=== PATIENT | female | born 1990 | race Caucasian/White ===

== ENCOUNTER 2017-02-04 07:00 | Inpatient (IN) | payer BC, MEDICAID ==
[2017-02-04] MEDS ORDERED: Misoprostol 50 MCG (1/2 of 100 MCG) Tab ONE (08:02)
[2017-02-04] MEDS ORDERED: Ondansetron 4 MG Tab.DIS PO PRN (08:22)
[2017-02-04] MEDS ORDERED: fentaNYL 100 MCG/2 ML SDV IVPUSH PRN (08:22)
[2017-02-04] MEDS ORDERED: Sodium Chloride 0.9% 10 ML Syringe FLUSH PRN (08:22)
[2017-02-04] MEDS ORDERED: Acetaminophen 325 MG Tab PO PRN (08:22)
[2017-02-04] MEDS ORDERED: Misoprostol 50 MCG (1/2 of 100 MCG) Tab VAG ONE (08:30)
--- NOTE | 2017-02-04 08:39 | PCM.LDHP ---
L&D History of Present Illness - General Date of Service: 02/04/17 (induction for baby at 98Th % at 39 weeks) Admit Problem/Dx: Patient Status Order with Admit Dx/Problem 02/04/17 08:22 Patient Status [ADT] Routine Admission Diagnosis/Problem Admission Diagnosis/Problem Source of Information: Patient History Limitations: Reports: No limitations - History of Present Illness Introduction:: This 26 year old who is 39 2/7 weeks gestation is being induced for baby measuring in the 98th % at 38 5/7 weeks. First baby was over 8 pounds at 39 weeks. Concern for macrosomic baby. Has had adequate care. Failed one hour GTT and passed the three hour GTT has gained over 30 pounds during this . 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 Dermatological Surgical History: Reports: None Social & Family History - Family History Family Medical History: Noncontributory - Tobacco Use Smoking Status *Q: Never Smoker Second Hand Smoke Exposure: No - Caffeine Use Caffeine Use: Reports: Soda Caffeine Use Comment: "Every once in a while." - Alcohol Use Days Per Week of Alcohol Use: 0 - Recreational Drug Use Recreational Drug Use: No H&P Review of Systems - Review of Systems: Review Of Systems: See Below General: Reports: no symptoms HEENT: Reports: no symptoms Pulmonary: Reports: No Symptoms Cardiovascular: Reports: no symptoms Gastrointestinal: Reports: No symptoms Genitourinary: Reports: no symptoms Musculoskeletal: Reports: no symptoms Skin: Reports: no symptoms Psychiatric: Reports: no symptoms Neurological: Reports: No Symptoms Hematologic/Lymphatic: Reports: no symptoms Immunologic: Reports: no symptoms L&D Exam - Exam Exam: See Below - Vital Signs Weight: 272 lb - OB Specific Contraction Intensity: Mild movement: active heart tones: present heart tones per min: 155 Heart Rate (FHR) Variability: Moderate (6-25 bmp) Presentation: Vertex Estimated Weight: 9 pounds - Alvarenga Score Alvarenga Score Cervix Position: Posterior Alvarenga Score Consistency: Soft Alvarenga Score Effacement: 51-70% Alvarenga Score Dilation: 1-2 cm Alvarenga Score 's Station: -1 ,0 Alvarenga Score Total: 7 - Exam General: alert, oriented HEENT: PERRLA, Conjunctiva clear, Mucosa moist & pink, Posterior pharynx clear Neck: supple, trachea midline Lungs: Clear to auscultation, Normal respiratory effort Cardiovascular: regular rate, regular rhythm Abdomen: normal bowel sounds, soft Rectal Exam: Normal exam Genitourinary: Normal external exam, Enlarged uterus Back Exam: normal inspection, full range of motion Extremities: normal inspection Skin: warm, dry, intact Neurological: cranial nerves intact, reflexes equal bilateral Psychiatric: alert, normal affect, normal mood - Patient Data Lab Results last 24 hrs: Laboratory Results - last 24 hr 02/04/17 02/04/17 02/04/17 Range/Units 07:36 07:36 07:41 WBC 13.7 H (4.5-11.0) K/uL RBC 4.29 (3.30-5.50) M/uL Hgb 12.5 (12.0-15.0) g/dL Hct 37.5 (36.0-48.0) % MCV 87 (80-98) fL MCH 29 (27-31) pg MCHC 33 (32-36) % Plt Count 209 (150-400) K/uL Neut % (Auto) 75 H (36-66) % Lymph % (Auto) 14 L (24-44) % [place] % (Auto) 10 H (2-6) % Eos % (Auto) 1 L (2-4) % Baso % (Auto) 0 (0-1) % Urine Color Yellow Urine Appearance Slightly cloudy Urine pH 6.0 (4.5-8.0) Ur Specific [place] 1.025 (1.008-1.030) Urine Protein Negative (NEGATIVE) mg/dL Urine Glucose (UA) Normal (NEGATIVE) mg/dL Urine Ketones Negative (NEGATIVE) mg/dL Urine Occult Blood Negative (NEGATIVE) Urine Nitrite Negative (NEGATIVE) Urine Bilirubin Small (NEGATIVE) Urine Urobilinogen 1 (NORMAL) mg/dL Ur Leukocyte Esterase Moderate (NEGATIVE) Urine RBC 0-5 (0-5) Urine WBC 20-30 H (0-5) Ur Epithelial Cells Many Amorphous Sediment Rare Urine Bacteria Few Urine Mucus Few Urine Opiates Screen Negative (NEGATIVE) Ur Oxycodone Screen Negative (NEGATIVE) Urine Methadone Screen Negative (NEGATIVE) Ur Propoxyphene Screen Negative (NEGATIVE) Ur Barbiturates Screen Negative (NEGATIVE) Ur Tricyclics Screen Negative (NEGATIVE) Ur Phencyclidine Scrn Negative (NEGATIVE) Ur Amphetamine Screen Negative (NEGATIVE) U Methamphetamines Scrn Negative (NEGATIVE) Urine MDMA Screen Negative (NEGATIVE) U Benzodiazepines Scrn Negative (NEGATIVE) U Cocaine Metab Screen Negative (NEGATIVE) U Marijuana (THC) Screen Negative (NEGATIVE) Result Diagrams: 02/04/17 07:41 - Problem List (1) Macrosomia affecting management of mother SNOMED Code(s): 30475731 ICD Code: O36.60X0 - MATERNAL CARE FOR EXCESS GROWTH, UNSP TRIMESTER, UNSP Status: Acute Current Visit: Yes (2) Elective induction of labor planned SNOMED Code(s): 537724576 ICD Code: [id number] - Status: Acute Current Visit: Yes (3) SNOMED Code(s): 91078368 ICD Code: Z33.1 - STATE, INCIDENTAL Status: Acute Current Visit : Yes Qualifiers: Weeks of gestation: 39 weeks Qualified Code(s): Z3A.39 - 39 weeks gestation of Problem List Initiated/Reviewed/Updated: Yes Orders Last 24hrs: Active Orders 24 hr Category Date Time Status Patient Status [ADT] Routine ADT 02/04/17 08:22 Ordered Antiembolic Devices [RC] .Routine Care 02/04/17 08:24 Ordered Communication Order [RC] ASDIRECTED Care 02/04/17 08:22 Ordered Heart Tones [RC] PER UNIT ROUTINE Care 02/04/17 08:22 Ordered May Shower [RC] ASDIRECTED Care 02/04/17 08:22 Ordered Notify Provider Vital Signs [RC] PRN Care 02/04/17 08:22 Ordered Notify Provider [RC] PRN Care 02/04/17 08:22 Ordered Up ad [place] [RC] ASDIRECTED Care 02/04/17 08:22 Ordered VTE/DVT Education [RC] Click to Edit Care 02/04/17 08:24 Ordered Vital Signs [RC] PER UNIT ROUTINE Care 02/04/17 08:22 Ordered Acetaminophen [Tylenol] Med 02/04/17 08:22 Ordered 650 mg PO Q4H PRN Misoprostol [Cytotec] Med 02/04/17 08:30 Ordered 50 mcg VAG ONETIME Ondansetron [Zofran ODT] Med 02/04/17 08:22 Ordered 4 mg PO Q4H PRN Oxytocin/Normal Saline [Pitocin in NS 20 Units/1,000 ML Med 02/04/17 08:30 Ordered ] 1,000 ml IV TITRATE Sodium Chloride 0.9% [Saline Flush] Med 02/04/17 08:22 Ordered 10 ml FLUSH ASDIRECTED PRN fentaNYL [Sublimaze] Med 02/04/17 08:22 Ordered 100 mcg IVPUSH Q1H PRN DVT/VTE Prophylaxis Reflex [OM.PC] Routine Oth 02/04/17 08:22 Ordered Saline Lock Insert [OM.PC] Routine Oth 02/04/17 08:22 Ordered Resuscitation Status Routine Resus Stat 02/04/17 08:22 Ordered Medication Orders Acetaminophen (Tylenol) 650 mg PO Q4H PRN PRN Reason: Pain (Mild 1-3) and fever Fentanyl (Sublimaze) 100 mcg IVPUSH Q1H PRN PRN Reason: Pain (moderate 4-6) Oxytocin/Sodium Chloride (Pitocin In Ns 20 Units/1,000 Ml) 1,000 mls @ 6 mls/ hr IV TITRATE ALCIRA; 2 MUNITS/MIN PRN Reason: Protocol Misoprostol (Cytotec) 50 mcg VAG ONETIME ALCIRA Ondansetron HCl (Zofran Odt) 4 mg PO Q4H PRN PRN Reason: Nausea/Vomiting Sodium Chloride (Saline Flush) 10 ml FLUSH ASDIRECTED PRN PRN Reason: Keep Vein Open Assessment/Plan Comment:: 26 year old 39 2/7 with baby greater than 98th % for growth for age. Induction today Treat GBS positive status Misoprostol 50 mcg this morning and reassess at noon. plan for a vaginal delivery later today pain management per patient request.
[2017-02-04] MEDS ORDERED: Penicillin G Potassium 5 MILLUNITS in Sodium Chloride 0.9% 100 ML IV ONE (10:00)
[2017-02-04] MEDS ORDERED: Sodium Chloride 0.9% 250 ML IV ONE (12:30)
--- NOTE | 2017-02-04 12:57 | PCM.PNLD ---
Labor Progress Note - VS & Meds Vital Signs: Last Vital Signs Temp 97.8 F 02/04/17 11:09 Pulse 79 02/04/17 11:09 Resp 18 02/04/17 11:09 BP 120/64 02/04/17 11:09 Pulse Ox 94 L 02/04/17 11:09 Active Medications: Current Medications Acetaminophen (Tylenol) 650 mg PO Q4H PRN PRN Reason: Pain (Mild 1-3) and fever Fentanyl (Sublimaze) 100 mcg IVPUSH Q1H PRN PRN Reason: Pain (moderate 4-6) Oxytocin/Sodium Chloride (Pitocin In Ns 20 Units/1,000 Ml) 20 unit in 1,000 mls @ 6 mls/hr IV TITRATE ALCIRA; 2 MUNITS/MIN PRN Reason: Protocol Penicillin G Potassium 2.5 (millunits/ Sodium Chloride) 50 mls @ 100 mls/hr IV Q4H ALCIRA Ondansetron HCl (Zofran Odt) 4 mg PO Q4H PRN PRN Reason: Nausea/Vomiting Sodium Chloride (Saline Flush) 10 ml FLUSH ASDIRECTED PRN PRN Reason: Keep Vein Open Discontinued Medications Penicillin G Potassium 5 (millunits/ Sodium Chloride) 100 mls @ 100 mls/hr IV ONETIME ONE Stop: 02/04/17 10:59 Last Admin: 02/04/17 10:11 Dose: 100 mls/hr Misoprostol (Cytotec) Confirm Administered Dose 50 mcg .ROUTE .STK-MED ONE Stop: 02/04/17 08:03 Last Admin: 02/04/17 08:52 Dose: Not Given Misoprostol (Cytotec) 50 mcg VAG ONETIME ONE Stop: 02/04/17 08:31 Last Admin: 02/04/17 08:03 Dose: 50 mcg - Uterine Contractions Uterine Monitoring Mode: External [place] Contraction Frequency (min): 0 Contraction Duration (sec): 0 Contraction Intensity: Mild to Moderate Uterine Resting Tone: Soft - Monitoring Monitor Mode: Doppler/Auscultation Heart Rate (FHR) Baseline: 155 Heart Rate (FHR) Variability: Moderate (6-25 bmp) Accelerations: Present, 15x15 Decelerations: None Strip Review: Category I - Vaginal Exam Dilation (cm): 2-3 Effacement (Percent): 80 Station: 0 Cervical Position: Posterior Sterile Vaginal Exam Performed By: Nohemy Nunez Vaginal Exam Comment: Nice progression, bloody show - Labor Progress (Free Text) Labor Progress: In the past half hour contractions have become more intense. Cervical change since this morning. Doing well Plan for vaginal delivery Pain medication per patient requested. Offered tub as first choice.
[2017-02-04] MEDS ORDERED: Penicillin G Potassium 2.5 MILLUNITS in Sodium Chloride 0.9% 50 ML IV SCH (14:00)
[2017-02-04] MEDS ORDERED: Lidocaine 1% 50 ML MDV ONE ×2 (15:03→19:55)
[2017-02-04] MEDS ORDERED: Ropivacaine 100 ML ONE (15:05)
[2017-02-04] MEDS ORDERED: Lidocaine 1% 50 ML MDV INJECT ONE (15:10)
[2017-02-04] MEDS ORDERED: Acetaminophen/oxyCODONE 325-5 MG Tab PO PRN (15:35)
[2017-02-04] MEDS ORDERED: Lanolin 100% Cream 40 GM Tube TOP PRN (15:35)
[2017-02-04] MEDS ORDERED: Benzocaine 20% Top Spray 56 GM Bottle TOP PRN (15:35)
[2017-02-04] MEDS ORDERED: Witch Hazel Medicated Pads 100/Jar TOP PRN (15:35)
--- NOTE | 2017-02-04 15:55 | PCM.DEL ---
L & D Note - General Info Date of Service: 02/04/17 (delivery) Mother's Due Date: 02/09/17 - Delivery Note Labor: spontaneous Cervical Ripening Method: Misoprostil Delivery Outcome: Livebirth Infant Delivery Method: Spontaneous Vaginal Delivery Delivery Mode: Spontaneous Presentation: Vertex Nuchal cord: present Anesthesia Type: Epidural (although baby was deliveriec without pain relief as epidural was just given and kickec in about the time I repaired her tear.) Amniotic Fluid Description: Clear Episiotomy Type: None Laceration: 1st degree, perineal, vaginal Suture type: vicryl Suture size: 3-0 Placenta: intact, spontaneous Cord: 3 vessels Estimated blood loss: 300 Resuscitation needed: No : bulb syringe, stimulated, warmed, blanket used, warmer used Provider: Nohemy Nunez Score 1 min: 9 Score 5 min: 9 Score 10 min: 9 Second Stage Interventions: Reports: Pushing Involuntarily Delivery Comments (Free Text/Narrative):: This 26 year old G2 now P2 who is 39 2/7 weeks delivered via a viable female infant at 1459 in LIT position. Mother progressed rapidly from 5 to complete. As she was lied down after the epidural she was complete with a bulging bag. I ruptured the bag and the head delivered spontaneously. Nuchal was reduced and delivered with left hand at face. The baby was placed on Mother's abdomen where she was dried and stimulated. The cord was clamped and cut and baby to warmer as she wasn't crying yet. She cried spontaneously as she was placed on the warmer. Apgars of 8,9,9. Three vessel cord. Weight 8-15 pounds. Baby transitioned well and started pinking up and crying while on the warmer. The placenta was expressed spontaneously intact. Active management of the third stage was sued. There was a 1 st degree tear of the vagina and perineum which was repaired with 3-0 vicryl. No lacerations of the cervix, or rectum were found. EBL 300cc Mother and baby to post and nursery in stable condition. Induction Criteria - Alvarenga Score Alvarenga Score Dilation: 1-2 cm Alvarenga Score Effacement: 40-50% Alvarenga Score 's Station: -1 ,0 Alvarenga Score Consistency: Medium Alvarenga Score Cervix Position: Posterior Alvarenga Score Total: 5 Alvarenga Score Presenting Part: Reports: Cephalic - Induction Gestational Age >/= 39 wks: Yes Estimated pelvis: Reports: Adequate Reassuring monitoring strip: Yes Absence of tachy systole: Yes - General Info Date of Service: 02/04/17 Admission Dx/Problem (Free Text): Patient Status Order with Admit Dx/Problem 02/04/17 08:22 Patient Status [ADT] Routine Admission Diagnosis/Problem Admission Diagnosis/Problem Functional Status: Reports: pain controlled - Review of Systems General: Reports: No Symptoms HEENT: Reports: no symptoms Pulmonary: Reports: no symptoms Cardiovascular: Reports: No Symptoms Gastrointestinal: Reports: No symptoms Genitourinary: Reports: no symptoms Musculoskeletal: Reports: no symptoms Skin: Reports: no symptoms Neurological: Reports: No Symptoms Psychiatric: Reports: no symptoms - Patient Data Vitals - most recent: Last Vital Signs Temp 97.8 F 02/04/17 11:09 Pulse 79 02/04/17 11:09 Resp 18 02/04/17 11:09 BP 120/64 02/04/17 11:09 Pulse Ox 94 L 02/04/17 11:09 Weight - most recent: 272 lb I&O - last 24 hours: Intake & Output 02/04/17 02/04/17 02/04/17 06:59 14:59 22:59 Intake Total 100 Balance 100 Lab Results last 24 hrs: Laboratory Results - last 24 hr 02/04/17 02/04/17 02/04/17 Range/Units 07:36 07:36 07:41 WBC 13.7 H (4.5-11.0) K/uL RBC 4.29 (3.30-5.50) M/uL Hgb 12.5 (12.0-15.0) g/dL Hct 37.5 (36.0-48.0) % MCV 87 (80-98) fL MCH 29 (27-31) pg MCHC 33 (32-36) % Plt Count 209 (150-400) K/uL Neut % (Auto) 75 H (36-66) % Lymph % (Auto) 14 L (24-44) % [place] % (Auto) 10 H (2-6) % Eos % (Auto) 1 L (2-4) % Baso % (Auto) 0 (0-1) % Urine Color Yellow Urine Appearance Slightly cloudy Urine pH 6.0 (4.5-8.0) Ur Specific [place] 1.025 (1.008-1.030) Urine Protein Negative (NEGATIVE) mg/dL Urine Glucose (UA) Normal (NEGATIVE) mg/dL Urine Ketones Negative (NEGATIVE) mg/dL Urine Occult Blood Negative (NEGATIVE) Urine Nitrite Negative (NEGATIVE) Urine Bilirubin Small (NEGATIVE) Urine Urobilinogen 1 (NORMAL) mg/dL Ur Leukocyte Esterase Moderate (NEGATIVE) Urine RBC 0-5 (0-5) Urine WBC 20-30 H (0-5) Ur Epithelial Cells Many Amorphous Sediment Rare Urine Bacteria Few Urine Mucus Few Urine Opiates Screen Negative (NEGATIVE) Ur Oxycodone Screen Negative (NEGATIVE) Urine Methadone Screen Negative (NEGATIVE) Ur Propoxyphene Screen Negative (NEGATIVE) Ur Barbiturates Screen Negative (NEGATIVE) Ur Tricyclics Screen Negative (NEGATIVE) Ur Phencyclidine Scrn Negative (NEGATIVE) Ur Amphetamine Screen Negative (NEGATIVE) U Methamphetamines Scrn Negative (NEGATIVE) Urine MDMA Screen Negative (NEGATIVE) U Benzodiazepines Scrn Negative (NEGATIVE) U Cocaine Metab Screen Negative (NEGATIVE) U Marijuana (THC) Screen Negative (NEGATIVE) Med Orders - Current: Current Medications Acetaminophen (Tylenol) 650 mg PO Q4H PRN PRN Reason: Pain (Mild 1-3) and fever Fentanyl (Sublimaze) 100 mcg IVPUSH Q1H PRN PRN Reason: Pain (moderate 4-6) Oxytocin/Sodium Chloride (Pitocin In Ns 20 Units/1,000 Ml) 20 unit in 1,000 mls @ 6 mls/hr IV TITRATE ALCIRA; 2 MUNITS/MIN PRN Reason: Protocol Penicillin G Potassium 2.5 (millunits/ Sodium Chloride) 50 mls @ 100 mls/hr IV Q4H ALCIRA Last Admin: 02/04/17 14:55 Dose: 100 mls/hr Ondansetron HCl (Zofran Odt) 4 mg PO Q4H PRN PRN Reason: Nausea/Vomiting Sodium Chloride (Saline Flush) 10 ml FLUSH ASDIRECTED PRN PRN Reason: Keep Vein Open Discontinued Medications Penicillin G Potassium 5 (millunits/ Sodium Chloride) 100 mls @ 100 mls/hr IV ONETIME ONE Stop: 02/04/17 10:59 Last Admin: 02/04/17 10:11 Dose: 100 mls/hr Sodium Chloride (Normal Saline) 250 mls @ 500 mls/hr IV ONETIME ONE Stop: 02/04/17 12:59 Oxytocin/Sodium Chloride (Pitocin In Ns 20 Units/1,000 Ml) Confirm Administered Dose 20 unit in 1,000 mls @ as directed .ROUTE .STK-MED ONE Stop: 02/04/17 15:00 Ropivacaine (Naropin 0.2%) Confirm Administered Dose 100 mls @ as directed .ROUTE .STK-MED ONE Stop: 02/04/17 15:06 Lidocaine HCl (Xylocaine 1%) Confirm Administered Dose 100 ml .ROUTE .STK-MED ONE Stop: 02/04/17 15:04 Misoprostol (Cytotec) Confirm Administered Dose 50 mcg .ROUTE .STK-MED ONE Stop: 02/04/17 08:03 Last Admin: 02/04/17 08:52 Dose: Not Given Misoprostol (Cytotec) 50 mcg VAG ONETIME ONE Stop: 02/04/17 08:31 Last Admin: 02/04/17 08:03 Dose: 50 mcg - Exam General: alert, oriented HEENT: Pupils equal, Pupils reactive, EOMI, Mucous membr. moist/pink Neck: supple Lungs: Clear to auscultation, Normal respiratory effort Cardiovascular: Regular Rate, Regular Rhythm Abdomen: bowel sounds present, soft, no tenderness, no distension (Female) Exam: Normal external exam, Normal speculum exam, Normal bimanual exam, Enlarged uterus, Vaginal bleeding Back Exam: normal inspection, full range of motion Extremities: no edema Skin: warm, dry, intact Neurological: no new focal deficit Psy/Mental Status: alert, normal affect, normal mood - Problem List & Annotations (1) Macrosomia affecting management of mother SNOMED Code(s): 46746883 Code(s): O36.60X0 - MATERNAL CARE FOR EXCESS GROWTH, UNSP TRIMESTER, UNSP Status: Acute Current Visit: Yes (2) Elective induction of labor planned SNOMED Code(s): 774339527 Code(s): FVL3527 - Status: Acute Current Visit: Yes (3) SNOMED Code(s): 82318608 Code(s): Z33.1 - STATE, INCIDENTAL Status: Acute Current Visit: Yes Qualifiers: Weeks of gestation: 39 weeks Qualified Code(s): Z3A.39 - 39 weeks gestation of (4) Vaginal tear resulting from childbirth SNOMED Code(s): 703520091 Code(s): O71.4 - OBSTETRIC HIGH VAGINAL LACERATION ALONE Status: Acute Current Visit: Yes (5) Labor and delivery complicated by cord around neck without compression SNOMED Code(s): 173385217, 833823079 Code(s): O69.81X0 - LABOR AND DEL COMP BY CORD AROUND NECK, W/O COMPRSN, UNSP Status: Acute Current Visit: Yes Qualifiers: Fetus number: single or unspecified fetus Qualified Code(s): O69.81X0 - Labor and delivery complicated by cord around neck, without compression, not applicable or unspecified (6) GBS (group B Streptococcus carrier), +RV culture, currently SNOMED Code(s): 65016318, 760736607 Code(s): O99.820 - STREPTOCOCCUS B CARRIER STATE COMPLICATING Status: Acute Current Visit: Yes - Problem List Review Problem List Initiated/Reviewed/Updated: Yes - My Orders Last 24 Hours: My Active Orders 02/04/17 08:22 Communication Order [RC] ASDIRECTED May Shower [RC] ASDIRECTED Notify Provider Vital Signs [RC] PRN Notify Provider [RC] PRN Up ad [place] [RC] ASDIRECTED Vital Signs [RC] PER UNIT ROUTINE Acetaminophen [Tylenol] 650 mg PO Q4H PRN Ondansetron [Zofran ODT] 4 mg PO Q4H PRN Sodium Chloride 0.9% [Saline Flush] 10 ml FLUSH ASDIRECTED PRN fentaNYL [Sublimaze] 100 mcg IVPUSH Q1H PRN DVT/VTE Prophylaxis Reflex [OM.PC] Routine Saline Lock Insert [OM.PC] Routine 02/04/17 08:24 VTE/DVT Education [RC] Click to Edit 02/04/17 08:30 Oxytocin/Normal Saline [Pitocin in NS 20 Units/1,000 ML] 20 unit in 1,000 ml IV TITRATE 02/04/17 14:00 Penicillin G Potassium [Pfizerpen] 2.5 millunits Sodium Chloride 0.9% [Normal Saline] 50 ml IV Q4H 02/04/17 15:35 Acetaminophen/oxyCODONE [Percocet 325-5 MG] 1 tab PO Q4H PRN Benzocaine [Rwci-C-Jyjazfp 20% [place]] See Dose Instructions TOP Q4H PRN Docusate Sodium [Colace] 100 mg PO BID PRN Ibuprofen [Motrin] 600 mg PO Q6H PRN Lanolin [Lansinoh HPA] 1 gm TOP ASDIRECTED PRN Witch Nicole [Tucks] 1 pad TOP ASDIRECTED PRN Assess Lochia [WOMSER] Per Unit Routine Assess Uterine Involution [WOMSER] Per Unit Routine Resuscitation Status Routine 02/04/17 15:36 Patient Status [ADT] Routine Vital Signs [RC] PFP 02/04/17 15:37 Ice Therapy [OM.PC] Per Unit Routine Perineal Care [OM.PC] Per Unit Routine Peripheral IV Discontinue [OM.PC] Routine Sitz Bath [OM.PC] Per Unit Routine 02/04/17 Dinner Regular Diet [DIET] 02/05/17 05:11 CBC WITH AUTO DIFF [HEME] AM - Assessment Assessment:: 26 year old G2 Now P2 without complications Nuchal cord easily reduced Laceration repaired GBS treated large for gestational age bottle feeding - Plan Plan:: 26 year old 39 12/03 with baby greater than 98th % for growth for age. Induction today Treat GBS positive status Misoprostol 50 mcg this morning and reassess at noon. plan for a vaginal delivery later today pain management per patient request. 02/04/17 Routine care of mother sitz bath as requested 48 hour stay due to GBS positive status
[2017-02-04] MEDS: Ibuprofen 600 MG Tab PO PRN (20:46)
--- NOTE | 2017-02-05 00:02 | ANES ---
DATE OF SERVICE: 02/04/2017 INDICATIONS: Makenna is a 26-year-old female, patient of Mely Nunez in our OB unit. I was requested to see her for prolonged stage II labor, #[id number]. Upon arrival, I found a 26-year-old healthy female. I reviewed her history chart and lab work, and found no contraindication to labor epidural. She was aware of risks and benefits of the procedure, which are reviewed a 2nd time. She was okay to proceed and consent was received. DESCRIPTION OF PROCEDURE: I had her seated at the edge of the bed. Betadine prep x3 to lumbar region. Sterile drape was placed. 1% lidocaine skin wheal as well as deep at the L3- L4 region, 17-gauge Tuohy was placed to loss of resistance. Negative CSF, negative heme, negative paresthesia. I inserted a catheter to 12 cm, removed the needle, placed test dose 3 mL of 1.5% lidocaine with 1:200,000 epinephrine. Negative sequelae. Catheter was secured. The patient was placed in the supine position. I dosed her with 12 mL of 0.2% ropivacaine, and began an infusion of 12 mL an hour of the same 0.2% ropivacaine. She tolerated the procedure quite well. After placing her in the supine position, she felt that she needed to push. I reported off to the nurse and Mely Nunez. Please refer to nurse's notes for vital signs and neuro status, which were changed and after completion, there were no questions. Rob Da Silva CRNA /[id number]
[2017-02-05] MEDS: Ibuprofen 600 MG Tab PO PRN ×2 (06:00→21:48)
--- NOTE | 2017-02-05 08:28 | PCM.PNPP ---
- General Info Date of Service: 02/05/17 (PPD 1) Admission Dx/Problem (Free Text): Patient Status Order with Admit Dx/Problem 02/04/17 08:22 Patient Status [ADT] Routine Admission Diagnosis/Problem Admission Diagnosis/Problem Functional Status: Reports: pain controlled - Review of Systems General: Reports: No Symptoms HEENT: Reports: no symptoms Pulmonary: Reports: no symptoms Cardiovascular: Reports: No Symptoms Gastrointestinal: Reports: No symptoms Genitourinary: Reports: no symptoms Musculoskeletal: Reports: no symptoms Skin: Reports: no symptoms Neurological: Reports: No Symptoms Psychiatric: Reports: no symptoms - General Info Date of Service: 02/05/17 - Patient Data Vital Signs - most recent: Last Vital Signs Temp 97.6 F 02/05/17 07:38 Pulse 88 02/05/17 07:38 Resp 18 02/05/17 07:38 BP 130/92 H 02/05/17 07:38 Pulse Ox 97 02/04/17 19:48 Weight - most recent: 272 lb I&O - last 24 hours: Intake & Output 02/04/17 02/05/17 02/05/17 22:59 06:59 14:59 Intake Total 1200 Balance 1200 Lab Results - last 24 hrs: Laboratory Results - last 24 hr 02/05/17 Range/Units 05:11 WBC 17.6 H (4.5-11.0) K/uL RBC 4.20 (3.30-5.50) M/uL Hgb 12.2 (12.0-15.0) g/dL Hct 37.0 (36.0-48.0) % MCV 88 (80-98) fL MCH 29 (27-31) pg MCHC 33 (32-36) % Plt Count 211 (150-400) K/uL Neut % (Auto) 76 H (36-66) % Lymph % (Auto) 15 L (24-44) % [place] % (Auto) 9 H (2-6) % Eos % (Auto) 1 L (2-4) % Baso % (Auto) 0 (0-1) % Med Orders - Current: Current Medications Acetaminophen (Tylenol) 650 mg PO Q4H PRN PRN Reason: Pain (Mild 1-3) and fever Benzocaine (Pelc-H-Gsnafki 20% [place]) 0 gm TOP Q4H PRN PRN Reason: Perineal Comfort Measure Docusate Sodium (Colace) 100 mg PO BID PRN PRN Reason: Constipation Emollient Ointment (Lansinoh Hpa) 1 gm TOP ASDIRECTED PRN PRN Reason: Sore Nipples Fentanyl (Sublimaze) 100 mcg IVPUSH Q1H PRN PRN Reason: Pain (moderate 4-6) Oxytocin/Sodium Chloride (Pitocin In Ns 20 Units/1,000 Ml) 20 unit in 1,000 mls @ 6 mls/hr IV TITRATE ALCIRA; 2 MUNITS/MIN PRN Reason: Protocol Last Titration: 02/04/17 15:30 Dose: 125 mls/hr Ibuprofen (Motrin) 600 mg PO Q6H PRN PRN Reason: mild pain or fever Last Admin: 02/05/17 06:00 Dose: 600 mg Ondansetron HCl (Zofran Odt) 4 mg PO Q4H PRN PRN Reason: Nausea/Vomiting Oxycodone/Acetaminophen (Percocet 325-5 Mg) 1 tab PO Q4H PRN PRN Reason: Pain (moderate 4-6) Sodium Chloride (Saline Flush) 10 ml FLUSH ASDIRECTED PRN PRN Reason: Keep Vein Open Witmoraima Rivera (Tucks) 1 pad TOP ASDIRECTED PRN PRN Reason: Hemorrhoids Discontinued Medications Penicillin G Potassium 5 (millunits/ Sodium Chloride) 100 mls @ 100 mls/hr IV ONETIME ONE Stop: 02/04/17 10:59 Last Admin: 02/04/17 10:11 Dose: 100 mls/hr Penicillin G Potassium 2.5 (millunits/ Sodium Chloride) 50 mls @ 100 mls/hr IV Q4H ALCIRA Last Admin: 02/04/17 14:55 Dose: 100 mls/hr Sodium Chloride (Normal Saline) 250 mls @ 500 mls/hr IV ONETIME ONE Stop: 02/04/17 12:59 Last Admin: 02/04/17 12:30 Dose: 500 mls/hr Oxytocin/Sodium Chloride (Pitocin In Ns 20 Units/1,000 Ml) Confirm Administered Dose 20 unit in 1,000 mls @ as directed .ROUTE .STK-MED ONE Stop: 02/04/17 15:00 Last Admin: 02/04/17 19:49 Dose: Not Given Ropivacaine (Naropin 0.2%) Confirm Administered Dose 100 mls @ as directed .ROUTE .STK-MED ONE Stop: 02/04/17 15:06 Lidocaine HCl (Xylocaine 1%) Confirm Administered Dose 100 ml .ROUTE .STK-MED ONE Stop: 02/04/17 15:04 Last Admin: 02/04/17 19:56 Dose: Not Given Lidocaine HCl (Xylocaine 1%) 50 ml INJECT ONETIME ONE Stop: 02/04/17 15:11 Last Admin: 02/04/17 15:10 Dose: 50 ml Lidocaine HCl (Xylocaine 1%) Confirm Administered Dose 50 ml .ROUTE .STK-MED ONE Stop: 02/04/17 19:56 Last Admin: 02/04/17 20:45 Dose: Not Given Misoprostol (Cytotec) Confirm Administered Dose 50 mcg .ROUTE .STK-MED ONE Stop: 02/04/17 08:03 Last Admin: 02/04/17 08:52 Dose: Not Given Misoprostol (Cytotec) 50 mcg VAG ONETIME ONE Stop: 02/04/17 08:31 Last Admin: 02/04/17 08:03 Dose: 50 mcg - Infant Interaction Infant Disposition, : in Room with Family Infant Interaction: Holding Infant Infant Feeding: Bottle Fed Infant Support Person: - Recovery Exam Fundal Tone: Firms with Massage Fundal Level: At Umbilicus Fundal Placement: Midline Lochia Amount: Small Lochia Color: Rubra/Red Perineum Description: Intact, Minimal Bruising/Swelling Episiotomy/Laceration: Approximated Bladder Status: Voiding Urinary Elimination: Voided Other Urinary Elimination, : Voided just prior to delivery. - Exam General: alert, oriented HEENT: Pupils equal Neck: supple Lungs: Clear to auscultation, Normal respiratory effort Cardiovascular: Regular Rate, Regular Rhythm Abdomen: bowel sounds present, soft, no tenderness, no distension Extremities: no edema Skin: warm, dry, intact Wound/Incisions: healing well Neurological: no new focal deficit Psy/Mental Status: alert, normal affect, normal mood - Problem List & Annotations (1) Macrosomia affecting management of mother SNOMED Code(s): 67012324 Code(s): O36.60X0 - MATERNAL CARE FOR EXCESS GROWTH, UNSP TRIMESTER, UNSP Status: Acute Current Visit: Yes (2) Elective induction of labor planned SNOMED Code(s): 663198629 Code(s): KEP7687 - Status: Acute Current Visit: Yes (3) SNOMED Code(s): 07371144 Code(s): Z33.1 - STATE, INCIDENTAL Status: Resolved Current Visit: No Qualifiers: Weeks of gestation: 39 weeks Qualified Code(s): Z3A.39 - 39 weeks gestation of (4) Vaginal tear resulting from childbirth SNOMED Code(s): 534134931 Code(s): O71.4 - OBSTETRIC HIGH VAGINAL LACERATION ALONE Status: Acute Current Visit: Yes (5) Labor and delivery complicated by cord around neck without compression SNOMED Code(s): 845526532, 695126497 Code(s): O69.81X0 - LABOR AND DEL COMP BY CORD AROUND NECK, W/O COMPRSN, UNSP Status: Acute Current Visit: Yes Qualifiers: Fetus number: single or unspecified fetus Qualified Code(s): O69.81X0 - Labor and delivery complicated by cord around neck, without compression, not applicable or unspecified (6) GBS (group B Streptococcus carrier), +RV culture, currently SNOMED Code(s): 74335873, 944655726 Code(s): O99.820 - STREPTOCOCCUS B CARRIER STATE COMPLICATING Status: Acute Current Visit: Yes - Problem List Review Problem List Initiated/Reviewed/Updated: Yes - My Orders Last 24 Hours: My Active Orders 02/04/17 08:22 May Shower [RC] ASDIRECTED Notify Provider Vital Signs [RC] PRN Up ad [place] [RC] ASDIRECTED Vital Signs [RC] Q8H Acetaminophen [Tylenol] 650 mg PO Q4H PRN Ondansetron [Zofran ODT] 4 mg PO Q4H PRN Sodium Chloride 0.9% [Saline Flush] 10 ml FLUSH ASDIRECTED PRN fentaNYL [Sublimaze] 100 mcg IVPUSH Q1H PRN DVT/VTE Prophylaxis Reflex [OM.PC] Routine Saline Lock Insert [OM.PC] Routine 02/04/17 08:24 VTE/DVT Education [RC] Click to Edit 02/04/17 08:30 Oxytocin/Normal Saline [Pitocin in NS 20 Units/1,000 ML] 20 unit in 1,000 ml IV TITRATE 02/04/17 15:35 Acetaminophen/oxyCODONE [Percocet 325-5 MG] 1 tab PO Q4H PRN Benzocaine [Eyta-J-Kkihvcv 20% [place]] See Dose Instructions TOP Q4H PRN Docusate Sodium [Colace] 100 mg PO BID PRN Ibuprofen [Motrin] 600 mg PO Q6H PRN Lanolin [Lansinoh HPA] 1 gm TOP ASDIRECTED PRN Witch Nicole [Tucks] 1 pad TOP ASDIRECTED PRN Assess Lochia [WOMSER] Per Unit Routine Assess Uterine Involution [WOMSER] Per Unit Routine Resuscitation Status Routine 02/04/17 15:36 Patient Status [ADT] Routine 02/04/17 15:37 Ice Therapy [OM.PC] Per Unit Routine Perineal Care [OM.PC] Per Unit Routine Peripheral IV Discontinue [OM.PC] Routine Sitz Bath [OM.PC] Per Unit Routine 02/04/17 Dinner Regular Diet [DIET] - Assessment Assessment:: 26 year old G2 Now P2 without complications Nuchal cord easily reduced Laceration repaired GBS treated large for gestational age bottle feeding 02/05/17 26 year old with 1 st degree repair doing well bottle baby GBS pos, treated HGB 12.2 - Plan Plan:: 26 year old 39 2 with baby greater than 98th % for growth for age. Induction today Treat GBS positive status Misoprostol 50 mcg this morning and reassess at noon. plan for a vaginal delivery later today pain management per patient request. 02/04/17 Routine care of mother sitz bath as requested 48 hour stay due to GBS positive status 02/05/17 Home tomorrow See me in 6 weeks up and about today
[2017-02-05] MEDS: Docusate Sodium 100 MG Cap PO PRN (21:48)
[2017-02-06 07:15] VITALS: BP 125/88
[2017-02-06] MEDS: Docusate Sodium 100 MG Cap PO PRN (07:31)
[2017-02-06] MEDS: Ibuprofen 600 MG Tab PO PRN ×2 (07:31→14:39)
--- NOTE | 2017-02-06 07:34 | PCM.PNPP ---
- General Info Date of Service: 02/06/17 Admission Dx/Problem (Free Text): Patient Status Order with Admit Dx/Problem 02/04/17 08:22 Patient Status [ADT] Routine Admission Diagnosis/Problem Admission Diagnosis/Problem Functional Status: Reports: pain controlled - Review of Systems General: Reports: No Symptoms HEENT: Reports: no symptoms Pulmonary: Reports: no symptoms Cardiovascular: Reports: No Symptoms Gastrointestinal: Reports: No symptoms Genitourinary: Reports: no symptoms Musculoskeletal: Reports: no symptoms Skin: Reports: no symptoms Neurological: Reports: No Symptoms Psychiatric: Reports: no symptoms - General Info Date of Service: 02/06/17 - Patient Data Vital Signs - most recent: Last Vital Signs Temp 36.7 C 02/06/17 07:14 Pulse 86 02/06/17 07:14 Resp 18 02/06/17 07:14 BP 125/88 02/06/17 07:14 Pulse Ox 96 02/06/17 07:14 Weight - most recent: 123.377 kg I&O - last 24 hours: Intake & Output 02/05/17 02/06/17 02/06/17 22:59 06:59 14:59 Intake Total 600 Balance 600 Med Orders - Current: Current Medications Acetaminophen (Tylenol) 650 mg PO Q4H PRN PRN Reason: Pain (Mild 1-3) and fever Benzocaine (Ezyb-H-Jqpzgxd 20% [place]) 0 gm TOP Q4H PRN PRN Reason: Perineal Comfort Measure Docusate Sodium (Colace) 100 mg PO BID PRN PRN Reason: Constipation Last Admin: 02/05/17 21:48 Dose: 100 mg Emollient Ointment (Lansinoh Hpa) 1 gm TOP ASDIRECTED PRN PRN Reason: Sore Nipples Fentanyl (Sublimaze) 100 mcg IVPUSH Q1H PRN PRN Reason: Pain (moderate 4-6) Oxytocin/Sodium Chloride (Pitocin In Ns 20 Units/1,000 Ml) 20 unit in 1,000 mls @ 6 mls/hr IV TITRATE ALCIRA; 2 MUNITS/MIN PRN Reason: Protocol Last Titration: 02/04/17 15:30 Dose: 125 mls/hr Ibuprofen (Motrin) 600 mg PO Q6H PRN PRN Reason: mild pain or fever Last Admin: 02/05/17 21:48 Dose: 600 mg Ondansetron HCl (Zofran Odt) 4 mg PO Q4H PRN PRN Reason: Nausea/Vomiting Oxycodone/Acetaminophen (Percocet 325-5 Mg) 1 tab PO Q4H PRN PRN Reason: Pain (moderate 4-6) Sodium Chloride (Saline Flush) 10 ml FLUSH ASDIRECTED PRN PRN Reason: Keep Vein Open Witch Nicole (Tucks) 1 pad TOP ASDIRECTED PRN PRN Reason: Hemorrhoids Discontinued Medications Penicillin G Potassium 5 (millunits/ Sodium Chloride) 100 mls @ 100 mls/hr IV ONETIME ONE Stop: 02/04/17 10:59 Last Admin: 02/04/17 10:11 Dose: 100 mls/hr Penicillin G Potassium 2.5 (millunits/ Sodium Chloride) 50 mls @ 100 mls/hr IV Q4H ALCIRA Last Admin: 02/04/17 14:55 Dose: 100 mls/hr Sodium Chloride (Normal Saline) 250 mls @ 500 mls/hr IV ONETIME ONE Stop: 02/04/17 12:59 Last Admin: 02/04/17 12:30 Dose: 500 mls/hr Oxytocin/Sodium Chloride (Pitocin In Ns 20 Units/1,000 Ml) Confirm Administered Dose 20 unit in 1,000 mls @ as directed .ROUTE .STK-MED ONE Stop: 02/04/17 15:00 Last Admin: 02/04/17 19:49 Dose: Not Given Ropivacaine (Naropin 0.2%) Confirm Administered Dose 100 mls @ as directed .ROUTE .STK-MED ONE Stop: 02/04/17 15:06 Lidocaine HCl (Xylocaine 1%) Confirm Administered Dose 100 ml .ROUTE .STK-MED ONE Stop: 02/04/17 15:04 Last Admin: 02/04/17 19:56 Dose: Not Given Lidocaine HCl (Xylocaine 1%) 50 ml INJECT ONETIME ONE Stop: 02/04/17 15:11 Last Admin: 02/04/17 15:10 Dose: 50 ml Lidocaine HCl (Xylocaine 1%) Confirm Administered Dose 50 ml .ROUTE .STK-MED ONE Stop: 02/04/17 19:56 Last Admin: 02/04/17 20:45 Dose: Not Given Misoprostol (Cytotec) Confirm Administered Dose 50 mcg .ROUTE .STK-MED ONE Stop: 02/04/17 08:03 Last Admin: 02/04/17 08:52 Dose: Not Given Misoprostol (Cytotec) 50 mcg VAG ONETIME ONE Stop: 02/04/17 08:31 Last Admin: 02/04/17 08:03 Dose: 50 mcg - Interaction Disposition, : [place] in Room with Family Interaction: Holding Feeding: Bottle Fed Infant Support Person: - Recovery Exam Fundal Tone: Firm Fundal Level: 1 Fingerbreadths Above Umbilicus Fundal Placement: Right Lochia Amount: Moderate Lochia Color: Rubra/Red Perineum Description: Intact, Minimal Bruising/Swelling Episiotomy/Laceration: Approximated Bladder Status: Voiding Urinary Elimination: Voided Other Urinary Elimination, : Voided just prior to delivery. - Exam General: alert, oriented HEENT: Pupils equal Neck: supple Lungs: Clear to auscultation, Normal respiratory effort Cardiovascular: Regular Rate, Regular Rhythm Abdomen: bowel sounds present, soft, no tenderness, no distension Extremities: no edema Skin: warm, dry, intact Wound/Incisions: healing well Neurological: no new focal deficit Psy/Mental Status: alert, normal affect, normal mood - Problem List & Annotations (1) GBS (group B Streptococcus carrier), +RV culture, currently SNOMED Code(s): 04269203, 345230651 Code(s): O99.820 - STREPTOCOCCUS B CARRIER STATE COMPLICATING Status: Acute Current Visit: Yes (2) Labor and delivery complicated by cord around neck without compression SNOMED Code(s): 628569665, 698105834 Code(s): O69.81X0 - LABOR AND DEL COMP BY CORD AROUND NECK, W/O COMPRSN, UNSP Status: Acute Current Visit: Yes Qualifiers: Fetus number: single or unspecified fetus Qualified Code(s): O69.81X0 - Labor and delivery complicated by cord around neck, without compression, not applicable or unspecified (3) Macrosomia affecting management of mother SNOMED Code(s): 26866678 Code(s): O36.60X0 - MATERNAL CARE FOR EXCESS GROWTH, UNSP TRIMESTER, UNSP Status: Acute Current Visit: Yes (4) Vaginal tear resulting from childbirth SNOMED Code(s): 196410845 Code(s): O71.4 - OBSTETRIC HIGH VAGINAL LACERATION ALONE Status: Acute Current Visit: Yes - Problem List Review Problem List Initiated/Reviewed/Updated: Yes - Assessment Assessment:: 26 year old G2 Now P2 without complications Nuchal cord easily reduced Laceration repaired GBS treated large for gestational age bottle feeding 02/05/17 26 year old with 1 st degree repair doing well bottle baby GBS pos, treated HGB 12.2 02/06/2017 Normal Day Two Bottlefeeding GBS positive treated 1st degree with repair-stable - Plan Plan:: 26 year old 39 12/03 with baby greater than 98th % for growth for age. Induction today Treat GBS positive status Misoprostol 50 mcg this morning and reassess at noon. plan for a vaginal delivery later today pain management per patient request. 02/04/17 Routine care of mother sitz bath as requested 48 hour stay due to GBS positive status 02/05/17 Home tomorrow See me in 6 weeks up and about today 02/06/2017 Continue Routine Care See Nohemy in 6 weeks Discharge today-48hr discharge per GBS positive
== END 2017-02-06 15:08 | disposition home or self-care (01) | DRG 560 ==
LOC: JP.OB 07:00 → OBSVTOIN 14:59 → JP.MS 14:59 → JP.OB 14:59
PROVIDERS: ADMIT Nurse Practitioner Family; ATTEND Nurse Practitioner Family
PROC: 10E0XZZ Delivery of Products of Conception, External Approach (ICD-10-PCS; principal; 2017-02-04)
PROC: 0HQ9XZZ Repair Perineum Skin, External Approach (ICD-10-PCS; 2017-02-04)
PROC: 3E0P7GC Introduction of Other Therapeutic Substance into Female Reproductive, Via Natural or Artificial Opening (ICD-10-PCS; 2017-02-04)
PROC: 00HU33Z Insertion of Infusion Device into Spinal Canal, Percutaneous Approach (ICD-10-PCS; 2017-02-04)
PROC: 3E0R3CZ (ICD-10-PCS; 2017-02-04)
DX: O36.60X0 Maternal care for excessive fetal growth, unspecified trimester, not applicable or unspecified (principal); O99.820 Streptococcus B carrier state complicating pregnancy; O70.0 First degree perineal laceration during delivery; O69.81X0 Labor and delivery complicated by cord around neck, without compression, not applicable or unspecified; Z3A.39 39 weeks gestation of pregnancy; Z37.0 Single live birth
CPT/HCPCS: 36415; 80305; 81001; 85025; A9270-GY; J2540; J2590; J2795; J7030; J7050

== ENCOUNTER 2017-04-15 13:19 | Emergency (ER) | payer BC, MEDICAID ==
[2017-04-15] MEDS ORDERED: Sodium Chloride 0.9% 10 ML Syringe FLUSH PRN ×2 (14:37→14:48)
--- NOTE | 2017-04-15 14:41 | EDM.PDOC ---
ED HPI GENERAL MEDICAL PROBLEM - General Chief Complaint: Abdominal Pain Stated Complaint: GALLBLADDER? ABD PAIN Time Seen by Provider: 04/15/17 14:25 Source of Information: Reports: Patient, Provider, RN Notes Reviewed History Limitations: Reports: No Limitations - History of Present Illness INITIAL COMMENTS - FREE TEXT/NARRATIVE: 26-year-old female presents emergency department today referred from the urgent care clinic for right upper quadrant pain she states she started having abdominal pain last night quite severe with nausea and vomiting pain now has resolved at this time initial evaluation in the clinic shows a right upper quadrant pain lab work was done CMP within normal limits except for AST ALT elevated to 18/11/46 respectively bilirubin also elevated at 1.8 CBC is unremarkable amylase is markedly elevated at 1488 urinalysis shows 50-100 rbc's consistent hematuria she is 10 weeks denies Pain Score (Numeric/FACES): 0 - Related Data Allergies Allergy/AdvReac Type Severity Reaction Status Date / Time No Known Allergies Allergy Verified 04/15/17 13:44 Home Meds: Home Meds Pnv with Ca,No.72/Iron/Fa [ Plus Tablet] 1 tab PO DAILY 02/04/17 [ History] Past Medical History [employer] History: Reports: - Infectious Disease History Infectious Disease History: Reports: Chicken Pox - Past Surgical History Musculoskeletal Surgical History: Reports: Other (See Below) Other Musculoskeletal Surgeries/Procedures:: laparoscopic knee surgery Dermatological Surgical History: Reports: None Social & Family History - Family History Family Medical History: Noncontributory - Tobacco Use Smoking Status *Q: Never Smoker Second Hand Smoke Exposure: No - Caffeine Use Caffeine Use: Reports: Soda Caffeine Use Comment: "Every once in a while." - Alcohol Use Days Per Week of Alcohol Use: 0 - Recreational Drug Use Recreational Drug Use: No ED ROS GENERAL - Review of Systems Review Of Systems: See Below Constitutional: Denies: Fever, Chills HEENT: Reports: No Symptoms Respiratory: Reports: No Symptoms Cardiovascular: Reports: No Symptoms GI/Abdominal: Reports: Abdominal Pain, Flatus, Nausea, Vomiting. Denies: Constipation, Diarrhea : Reports: No Symptoms Musculoskeletal: Reports: No Symptoms Skin: Reports: No Symptoms ED EXAM, GI/ABD - Physical Exam Exam: See Below Exam Limited By: No Limitations General Appearance: Alert, WD/WN, No Apparent Distress Respiratory/Chest: No Respiratory Distress, Lungs Clear, Normal Breath Sounds, No Accessory Muscle Use Cardiovascular: Regular Rate, Rhythm, No Murmur GI/Abdominal: Soft, Non-Tender Course - Vital Signs Last Recorded V/S: Last Vital Signs Temp 99.1 F 04/15/17 13:44 Pulse 68 04/15/17 15:17 Resp 16 04/15/17 15:17 BP 138/72 04/15/17 15:17 Pulse Ox 99 04/15/17 15:17 - Orders/Labs/Meds Orders: Active Orders 24 hr Category Date Time Status Peripheral IV Care [RC] . DIRECTED Care 04/15/17 14:37 Active Abdomen Pelvis w Cont [CT] Stat Exams 04/15/17 14:36 Taken Iopamidol [Isovue-300 (61%)] Med 04/15/17 15:00 Active 150 ml IV . DIRECTED Sodium Chloride 0.9% [Normal Saline] 1,000 ml Med 04/15/17 14:45 Active IV ASDIRECTED Sodium Chloride 0.9% [Saline Flush] Med 04/15/17 14:37 Active 10 ml FLUSH ASDIRECTED PRN Sodium Chloride 0.9% [Saline Flush] Med 04/15/17 14:48 Active 10 ml FLUSH ONETIME PRN Peripheral IV Insertion Adult [OM.PC] Urgent Oth 04/15/17 14:37 Ordered Medication Orders Sodium Chloride (Normal Saline) 1,000 mls @ 500 mls/hr IV ASDIRECTED ALCIRA Last Admin: 04/15/17 15:16 Dose: 500 mls/hr Iopamidol (Isovue-300 (61%)) 150 ml IV . DIRECTED ALCIRA Last Admin: 04/15/17 15:11 Dose: 150 ml Sodium Chloride (Saline Flush) 10 ml FLUSH ASDIRECTED PRN PRN Reason: Keep Vein Open Sodium Chloride (Saline Flush) 10 ml FLUSH ONETIME PRN PRN Reason: PER RADIOLOGY PROTOCOL Last Admin: 04/15/17 15:11 Dose: 10 ml Meds: Medications Generic Name Dose Route Start Last Admin Trade Name Freq PRN Reason Stop Dose Admin Sodium Chloride 1,000 mls @ 500 mls/hr 04/15/17 14:45 04/15/17 15:16 Normal Saline IV 500 mls/hr ASDIRECTED [facility] Administration Iopamidol 150 ml 04/15/17 15:00 04/15/17 15:11 Isovue-300 (61%) IV 150 ml . DIRECTED ALCIRA Administration Sodium Chloride 10 ml 04/15/17 14:37 Saline Flush FLUSH ASDIRECTED PRN Keep Vein Open Sodium Chloride 10 ml 04/15/17 14:48 04/15/17 15:11 Saline Flush FLUSH 10 ml ONETIME PRN Administration PER RADIOLOGY PROTOCOL Discontinued Medications Generic Name Dose Route Start Last Admin Trade Name Maeve PRN Reason Stop Dose Admin Sodium Chloride 85 mls @ 3 mls/sec 04/15/17 14:48 04/15/17 15:11 Normal Saline IV 04/15/17 14:49 3 mls/sec ONETIME ONE Administration Departure - Departure Time of Disposition: 16:20 Disposition: Home, Self-Care 01 Condition: Good Clinical Impression: RUQ pain - Discharge Information Forms: ED Department Discharge Additional Instructions: Please follow-up with Dr. Quinn for further evaluation and treatment call return to the emergency department with worsening of symptoms - My Orders Last 24 Hours: My Active Orders 04/15/17 14:36 Abdomen Pelvis w Cont [CT] Stat 04/15/17 14:37 Peripheral IV Care [RC] . DIRECTED Sodium Chloride 0.9% [Saline Flush] 10 ml FLUSH ASDIRECTED PRN Peripheral IV Insertion Adult [OM.PC] Urgent 04/15/17 14:45 Sodium Chloride 0.9% [Normal Saline] 1,000 ml IV ASDIRECTED 04/15/17 14:48 Sodium Chloride 0.9% [Saline Flush] 10 ml FLUSH ONETIME PRN 04/15/17 15:00 Iopamidol [Isovue-300 (61%)] 150 ml IV . DIRECTED - Assessment/Plan Last 24 Hours: My Active Orders 04/15/17 14:36 Abdomen Pelvis w Cont [CT] Stat 04/15/17 14:37 Peripheral IV Care [RC] . DIRECTED Sodium Chloride 0.9% [Saline Flush] 10 ml FLUSH ASDIRECTED PRN Peripheral IV Insertion Adult [OM.PC] Urgent 04/15/17 14:45 Sodium Chloride 0.9% [Normal Saline] 1,000 ml IV ASDIRECTED 04/15/17 14:48 Sodium Chloride 0.9% [Saline Flush] 10 ml FLUSH ONETIME PRN 04/15/17 15:00 Iopamidol [Isovue-300 (61%)] 150 ml IV . DIRECTED Plan: Assessment Acuity = acute Site and laterality = right upper quadrant pain Etiology = suspicious for cholecystitis Manifestations = none Location of injury = home Lab values = CT scan shows thickened gallbladder recommend follow-up ultrasound Plan Discussed the case with Dr. Quinn surgeon television production clerk he came and evaluated the patient in the ED she is set up for outpatient cholecystectomy in the future Patient was in agreement with the plan all questions were answered, they were instructed to return to the emergency department or call for worsening symptoms. This note was dictated using [employer] voice recognition software please call with any questions.
[2017-04-15] MEDS ORDERED: Sodium Chloride 0.9% 1,000 ML IV SCH (14:45)
[2017-04-15] MEDS ORDERED: Iopamidol 612 MG/ML 150 ML Bottle IV SCH (15:00)
[2017-04-15 15:19] VITALS: BP 138/72
--- NOTE | 2017-04-16 08:03 | CONS ---
DATE OF SERVICE: 04/15/2017 REFERRING PHYSICIAN: CONSULTING PHYSICIAN: Hema Quinn MD REASON FOR CONSULTATION: Abdominal pain. HISTORY OF PRESENT ILLNESS: A pleasant 26-year-old female with right upper quadrant abdominal pain. This is a new problem for her over the last 24 hours. This is associated with elevated bilirubin. However, the patient's pain has completely gone to zero in the last 1 to 2 hours. PAST MEDICAL HISTORY: Recent delivery of a baby approximately 10 weeks ago. PAST SURGICAL HISTORY: None. 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 FAMILY HISTORY: No family history of gallbladder cancer. REVIEW OF SYSTEMS: GENERAL: The patient is appropriate for her condition. HEENT: No symptoms. CARDIOVASCULAR: No history of myocardial infarction. RESPIRATORY: No history of shortness of breath. GASTROINTESTINAL: Normal bowel movements. NEUROLOGICAL: No other symptoms. PSYCH: No symptoms. The remainder of review of systems was reviewed and is negative. PHYSICAL EXAMINATION: VITAL SIGNS: Stable. HEENT: Pupils are equal. NECK: Supple. LUNGS: Clear to auscultation bilaterally. CARDIOVASCULAR: Regular rhythm and rate. ABDOMEN: Bowel sounds are positive. No rebound. No guarding. No tenderness. EXTREMITIES: Full range of motion. NEUROLOGICAL: . PSYCH: No gross depression. LABORATORY DATA: Laboratory results show a mildly elevated bilirubin of 1.8. CT scan did not show any evidence of choledocholithiasis, but suggests cholecystitis, cholelithiasis. ASSESSMENT: 1. Choledocholithiasis. The patient, I believe, has recently passed a stone which has abated her pain and is the explanation for the mildly elevated bilirubin. 2. Cholelithiasis/cholecystitis. PLAN: The patient will undergo laparoscopic cholecystectomy. She prefers to wait due to starting recent job, and recent baby. I think this is appropriate, therefore, we will schedule the patient for laparoscopic cholecystectomy in the next 30 days. Risks, benefits, alternatives, and limitations including, but not limited to, infection and bleeding were explained to the patient. We also discussed common bile duct injury, common bile duct exploration, cystic duct leaks, injury to bowel or bladder, and other risks not listed here. The patient understands these risks and wished to proceed. As far as diet, the patient is going to initiate a high-fiber and low-fat diet. In addition, she is to return to the emergency room if her pain returns. Hema Quinn MD /[id number]
== END 2017-04-15 16:35 | disposition home or self-care (01) ==
LOC: JP.ED 13:19
DX: R10.11 Right upper quadrant pain (principal); Z79.899 Other long term (current) drug therapy
CPT/HCPCS: 74177; 96360; 96361; 99284; J7030; J7040; J7050; 99283

== ENCOUNTER 2017-04-25 07:37 | Day surgery (SDC) | payer BC, MEDICAID ==
[~2017-04-25 07:37] MED LIST: Bupivacaine 0.5%/EPINEPHrine 1:200,000 50 ML MDV ONE; Lidocaine 1% 50 ML MDV ONE
[2017-04-25] MEDS ORDERED: ceFAZolin 2 GM in Sodium Chloride 0.9% 50 ML IV ONE (08:15)
[2017-04-25] MEDS ORDERED: metroNIDAZOLE/Normal Saline 500 MG in Premix Bag 1 BAG IV ONE (08:15)
[2017-04-25] MEDS ORDERED: Sodium Chloride 0.9% 1,000 ML IV SCH (08:15)
[2017-04-25] MEDS ORDERED: Ondansetron 4 MG/2 ML SDV ONE (09:30)
[2017-04-25] MEDS ORDERED: Midazolam 1 MG/ML 2 ML SDV ONE (09:30)
[2017-04-25] MEDS ORDERED: fentaNYL 250 MCG/5 ML SDV ONE (09:30)
[2017-04-25] MEDS ORDERED: Neostigmine Methylsulfate 1 MG/ML 5 ML Syringe ONE (09:30)
[2017-04-25] MEDS ORDERED: Rocuronium 50 MG/5 ML Vial ONE (09:30)
[2017-04-25] MEDS ORDERED: Propofol 200 MG/20 ML SDV ONE (09:30)
[2017-04-25] MEDS ORDERED: Dexamethasone 4 MG/ML SDV ONE (09:30)
[2017-04-25] MEDS ORDERED: Ketorolac 60 MG/2 ML SDV ONE (10:26)
[2017-04-25] MEDS ORDERED: Docusate Sodium 100 MG Cap PO PRN (10:38)
[2017-04-25] MEDS ORDERED: Benzocaine/Cetylpyridinium/Menthol Lozenge MUCMEM PRN (10:38)
[2017-04-25] MEDS ORDERED: Zolpidem 5 MG Tab PO PRN (10:38)
[2017-04-25] MEDS ORDERED: diphenhydrAMINE 50 MG/ML SDV IVPUSH PRN (10:38)
[2017-04-25] MEDS ORDERED: Bisacodyl 5 MG Tab PO PRN (10:38)
[2017-04-25] MEDS ORDERED: fentaNYL 100 MCG/2 ML SDV IVPUSH ONE (11:02)
[2017-04-25] MEDS: Acetaminophen/HYDROcodone 325-10 MG Tab PO PRN ×2 (12:12→16:22)
[2017-04-25 16:52] VITALS: BP 121/70
--- NOTE | 2017-04-28 09:34 | OR ---
DATE OF PROCEDURE: 04/25/2017 PROCEDURE: Laparoscopic cholecystectomy. PREOPERATIVE DIAGNOSIS: Cholelithiasis, cholecystitis with a history of choledocholithiasis. POSTOPERATIVE DIAGNOSIS: Cholelithiasis, cholecystitis with a history of choledocholithiasis. COMPLICATION: None. 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 ANESTHESIA: General/local. RISKS: Risks, benefits, alternatives, and limitations, including, but not limited to infection, bleeding, perforation of bowel, bladder, and abdominal vasculature, along with the cystic duct, common bile duct injuries, and the requirement for open surgery were explained to the patient. We also discussed cystic duct leaks. PROCEDURE IN DETAIL: The patient was placed in supine position. A supraumbilical curvilinear incision was made. A Veress needle was used to enter the abdomen without abnormality and a drop test was performed without abnormality. The abdomen was subsequently insufflated. This was followed by an Optiview trocar. An additional 10 and two 5 mm ports were entered under direct vision. The gallbladder was retracted cephalad. The infundibulum was retracted inferior laterally. The omentum was noted to be wrapped around the gallbladder consistent with significant disease. This was bluntly dissected freely. The gallbladder was retracted cephalad. The infundibulum was retracted inferior laterally. Using blunt dissection, eventually a single pulsatile structure and a single non-pulsatile structure were used to enter the gallbladder. These were subsequently clipped x3 and transected. The remaining 1/3rd of the gallbladder was removed out of the gallbladder bed without difficulty. The liver bed was inspected for abnormality, which none were noted. The air was removed after thorough irrigation and suction. The wounds were closed with 3-0 Vicryl and 4-0 Vicryl interrupted running fashion after irrigation. Dermabond was applied. The patient tolerated the procedure well. Hema Quinn MD /[id number]
== END 2017-04-25 17:41 | disposition home or self-care (01) ==
LOC: JP.SDS 07:37 → JP.MS 11:30 → JP.SDS 17:41
PROVIDERS: ATTEND Surgery
DX: K80.10 Calculus of gallbladder with chronic cholecystitis without obstruction (principal); F41.9 Anxiety disorder, unspecified; Z98.890 Other specified postprocedural states; Z79.899 Other long term (current) drug therapy
CPT/HCPCS: 36415; 47562; 80053; 82248; A9270; J0690; J1100; J1885; J2250; J2405; J2704; J3010; J7040; J7050; 88304

== ENCOUNTER 2020-08-28 00:55 | Inpatient (IN) | payer OTHER, MEDICAID ==
[2020-08-28] MEDS ORDERED: Lactated Ringers 1,000 ML IV SCH (01:30)
[2020-08-28] MEDS ORDERED: Lidocaine 1% 50 ML MDV ONE (01:51)
[2020-08-28] MEDS ORDERED: Benzocaine 20% Top Spray 56 GM Bottle TOP ONE (02:19)
[2020-08-28] MEDS ORDERED: Ibuprofen 200 MG Tab, 24 Tab Bulk Bottle PO PRN (02:19)
[2020-08-28] MEDS ORDERED: Witch Hazel Medicated Pads 100/Jar TOP ONE (02:19)
[2020-08-28] MEDS ORDERED: Acetaminophen 325 MG Tab, 50 Tab Bulk Bottle PO PRN (02:19)
--- NOTE | 2020-08-28 02:32 | PCM.LDHP ---
L&D History of Present Illness - General Date of Service: 08/28/20 (active labor) Admit Problem/Dx: Patient Status Order with Admit Dx/Problem 08/28/20 02:20 Patient Status [ADT] Routine Admission Diagnosis/Problem Admission Diagnosis/Problem Labor established Source of Information: Patient History Limitations: Reports: No Limitations - History of Present Illness Introduction:: Makenna awoke at 2330 in active labor. After a few contractions and family came to be with children she drove herself to the hospital. upon admission at 0115 she was dilated to 6-7 cm per RN. I arrived at 0130. She wanted to push at 0136 and was complete. A viable female was delivered via at 0138 in ANNA position. She was placed on her mother's chest and was pink and screaming. Apgars of 8-9. She is a G3 now P3 and 38 weeks gestation. Three vessel cord. Active management of the third stage and delayed cord clamping were done. The placenta was expressed spontaneously intact. A first degree perineal tear was found and repaired with 3-0. 1% lidocaine was used as a local agent. No lacerations to the cervix, vagina or rectum were found. EBL 100cc Mother and baby to post in stable condition. weight 8-2 First stage 7306-2659 Second stage 6961-3125 Third stage 8683-9276 Beautiful delivery with no medication or complications Timing/Duration: Reports: minutes: (2), constant/continuous Location, : Reports: Abdomen Quality: Reports: Pressure Severity: Severe Improves with: Reports: None Worsens with: Reports: None Associated Symptoms: Reports: vaginal fluid - Related Data Allergies/Adverse Reactions: Allergies Allergy/AdvReac Type Severity Reaction Status Date / Time No Known Allergies Allergy Verified 04/25/17 08:09 Home Medications: Home Meds Fluticasone Propionate [Flonase] 2 spray NASBOTH DAILY PRN 04/23/17 [History] Iron 18 mg PO DAILY 08/28/20 [History] Multivitamin [Multivitamins] 1 each PO DAILY 08/28/20 [History] 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: : 3 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: 2 LMP (Approximate): (09/10/20) - Infectious Disease History Infectious Disease History: Reports: Chicken Pox - Past Surgical History GI Surgical History: Reports: Cholecystectomy Musculoskeletal Surgical History: Reports: Other (See Below) Other Musculoskeletal Surgeries/Procedures:: laparoscopic knee surgery Dermatological Surgical History: Reports: None Social & Family History - Family History Family Medical History: Noncontributory - Tobacco Use Tobacco Use Status *Q: Never Tobacco User Second Hand Smoke Exposure: No - Caffeine Use Caffeine Use: Reports: Soda Caffeine Use Comment: "Every once in a while." - Recreational Drug Use Recreational Drug Use: No H&P Review of Systems - Review of Systems: Review Of Systems: See Below General: Reports: No Symptoms HEENT: Reports: No Symptoms Pulmonary: Reports: No Symptoms Cardiovascular: Reports: No Symptoms Gastrointestinal: Reports: No Symptoms Genitourinary: Reports: No Symptoms Musculoskeletal: Reports: No Symptoms Skin: Reports: No Symptoms Psychiatric: Reports: No Symptoms Neurological: Reports: No Symptoms Hematologic/Lymphatic: Reports: No Symptoms Immunologic: Reports: No Symptoms L&D Exam - Exam Exam: See Below - Vital Signs Vital Signs: Last Vital Signs Temp 98.9 F 08/28/20 01:03 Pulse 138 H 08/28/20 01:03 Resp 16 08/28/20 01:03 BP 135/82 08/28/20 01:03 Pulse Ox 99 08/28/20 01:03 Weight: 266 lb - OB Specific Contraction Intensity: Strong Movement: Active Heart Tones: Present Heart Rate (FHR) Variability: Moderate (6-25 bmp) Presentation: Vertex - Alvarenga Score Alvarenga Score Cervix Position: Anterior Al[place]renga Score Consistency: Soft Al[place]renga Score Effacement: >80% Alvarenga Score Dilation: > 5 cm Alvarenga Score Infant's Station: +1, +2 Alvarenga Score Total: 13 - Exam General: Alert, Oriented HEENT: PERRLA, Conjunctiva Clear, EACs Clear, EOMI, Hearing Intact, Mucosa Moist & [place], Nares Patent, Normal Nasal Septum, Posterior Pharynx Clear, TMs Clear Neck: Supple, Trachea Midline Lungs: Clear to Auscultation, Normal Respiratory Effort Cardiovascular: Regular Rate, Regular Rhythm GI/Abdominal Exam: Normal Bowel Sounds, Soft, Non-Tender, No Organomegaly, No Distention, No Abnormal Bruit, No Mass, Pelvis Stable Rectal Exam: Normal Exam, Normal Rectal Tone Genitourinary: Normal external exam, Normal bimanual exam, Normal speculum exam Back Exam: Normal Inspection, Full Range of Motion Extremities: Normal Inspection, Normal Range of Motion, Non-Tender, No Pedal Edema, Normal Capillary Refill Skin: Warm, Dry, Intact Neurological: Cranial Nerves Intact, Reflexes Equal Bilateral Psychiatric: Alert, Normal Affect, Normal Mood - Patient Data Lab Results Last 24 hrs: Laboratory Results - last 24 hr 08/28/20 08/28/20 08/28/20 Range/Units 01:13 01:13 01:42 WBC 28.4 H (4.5-11.0) K/uL RBC 2.33 L (3.30-5.50) M/uL Hgb 8.8 L D (12.0-15.0) g/dL Hct 26.2 L (36.0-48.0) % MCV 112 H (80-98) fL MCH 38 H (27-31) pg MCHC 34 (32-36) % Plt Count 199 (150-400) K/uL Urine Color (YELLOW) Urine Appearance (CLEAR) Urine pH (5.0-8.0) Ur Specific [place] (1.008-1.030) Urine Protein (NEGATIVE) mg/dL Urine Glucose (UA) (NEGATIVE) mg/dL Urine Ketones (NEGATIVE) mg/dL Urine Occult Blood (NEGATIVE) Urine Nitrite (NEGATIVE) Urine Bilirubin (NEGATIVE) Urine Urobilinogen (0.2-1.0) EU/dL Ur Leukocyte Esterase (NEGATIVE) Urine Opiates Screen Negative (NEGATIVE) Ur Oxycodone Screen Negative (NEGATIVE) Urine Methadone Screen Negative (NEGATIVE) Ur Propoxyphene Screen Negative (NEGATIVE) Ur Barbiturates Screen Negative (NEGATIVE) Ur Tricyclics Screen Negative (NEGATIVE) Ur Phencyclidine Scrn Negative (NEGATIVE) Ur Amphetamine Screen Negative (NEGATIVE) U Methamphetamines Scrn Negative (NEGATIVE) Urine MDMA Screen Negative (NEGATIVE) U Benzodiazepines Scrn Negative (NEGATIVE) U Cocaine Metab Screen Negative (NEGATIVE) U Marijuana (THC) Screen Negative (NEGATIVE) SARS CoV-2 RNA Rapid JENNIFER Negative 08/28/20 Range/Units 01:42 WBC (4.5-11.0) K/uL RBC (3.30-5.50) M/uL Hgb (12.0-15.0) g/dL Hct (36.0-48.0) % MCV (80-98) fL MCH (27-31) pg MCHC (32-36) % Plt Count (150-400) K/uL Urine Color Yellow (YELLOW) Urine Appearance Slightly cloudy A (CLEAR) Urine pH 6.5 (5.0-8.0) Ur Specific [place] 1.015 (1.008-1.030) Urine Protein 30 H (NEGATIVE) mg/dL Urine Glucose (UA) Normal (NEGATIVE) mg/dL Urine Ketones Negative (NEGATIVE) mg/dL Urine Occult Blood Small (NEGATIVE) Urine Nitrite Negative (NEGATIVE) Urine Bilirubin Negative (NEGATIVE) Urine Urobilinogen 0.2 (0.2-1.0) EU/dL Ur Leukocyte Esterase Trace H (NEGATIVE) Urine Opiates Screen (NEGATIVE) Ur Oxycodone Screen (NEGATIVE) Urine Methadone Screen (NEGATIVE) Ur Propoxyphene Screen (NEGATIVE) Ur Barbiturates Screen (NEGATIVE) Ur Tricyclics Screen (NEGATIVE) Ur Phencyclidine Scrn (NEGATIVE) Ur Amphetamine Screen (NEGATIVE) U Methamphetamines Scrn (NEGATIVE) Urine MDMA Screen (NEGATIVE) U Benzodiazepines Scrn (NEGATIVE) U Cocaine Metab Screen (NEGATIVE) U Marijuana (THC) Screen (NEGATIVE) SARS CoV-2 RNA Rapid JENNIFER Result Diagrams: 08/28/20 01:13 - Problem List (1) Vaginal delivery SNOMED Code(s): 179024625 ICD Code: O80 - ENCOUNTER FOR FULL-TERM UNCOMPLICATED DELIVERY Status: Acute Current Visit: Yes (2) Active labor at term SNOMED Code(s): 17318745 ICD Code: [id number] - Status: Acute Current Visit: Yes Problem List Initiated/Reviewed/Updated: Yes Orders Last 24hrs: Active Orders 24 hr Category Date Time Status Patient Status [ADT] Routine ADT 08/28/20 02:20 Ordered Antiembolic Devices [RC] .Routine Care 08/28/20 02:21 Ordered OB Check [OM.PC] Click to Edit Care 08/28/20 01:08 Ordered VTE/DVT Education [RC] Click to Edit Care 08/28/20 02:21 Ordered Vital Signs [RC] PFP Care 08/28/20 02:20 Ordered Regular Diet [DIET] Diet 08/28/20 Breakfast Ordered CBC WITH AUTO DIFF [HEME] AM Lab 08/28/20 05:11 Ordered Acetaminophen [Tylenol Bulk Bottle] Med 08/28/20 02:19 Ordered See Dose Instructions PO Q4H PRN Benzocaine [Zzha-G-Ffxxfyp 20% [place]] Med 08/28/20 02:19 Once See Dose Instructions TOP Q4H ONE Ibuprofen [Motrin Bulk Bottle] Med 08/28/20 02:19 Ordered 600 mg PO Q6H PRN Lactated Ringers [Ringers, Lactated] 1,000 ml Med 08/28/20 01:30 Active IV ASDIRECTED Oxytocin/Normal Saline [Pitocin in NS 20 Units/1,000 ML Med 08/28/20 01:30 Active ] 20 unit in 1,000 ml IV ASDIRECTED adilia Cabral [[place]] Med 08/28/20 02:19 Once 1 pad TOP ASDIRECTED ONE Assess Lochia [WOMSER] Per Unit Routine Oth 08/28/20 02:19 Ordered Assess Uterine Involution [WOMSER] Per Unit Routine Oth 08/28/20 02:19 Ordered DVT/VTE Prophylaxis Reflex [OM.PC] Routine Oth 08/28/20 02:19 Ordered Perineal Care [OM.PC] Per Unit Routine Oth 08/28/20 02:21 Ordered Peripheral IV Discontinue [OM.PC] Routine Oth 08/28/20 02:21 Ordered Sitz Bath [OM.PC] Per Unit Routine Oth 08/28/20 02:21 Ordered Resuscitation Status Routine Resus Stat 08/28/20 02:19 Ordered Medication Orders Benzocaine (Pzod-X-Psmufbg 20% [place]) 0 gm TOP Q4H ONE Stop: 08/28/20 02:20 Lactated Ringer's (Ringers, Lactated) 1,000 mls @ 100 mls/hr IV ASDIRECTED ALCIRA Oxytocin/Sodium Chloride (Pitocin In Ns 20 Units/1,000 Ml) 20 unit in 1,000 mls @ 500 mls/hr IV ASDIRECTED ALCIRA; Protocol Adilia Cabral ([place]) 1 pad TOP ASDIRECTED ONE Stop: 08/28/20 02:20 Assessment/Plan Comment:: 29 year old who is 38 weeks admit and delivery
[2020-08-28] MEDS ORDERED: Lidocaine 1% 20 ML MDV INJECT ONE (02:40)
--- NOTE | 2020-08-28 02:42 | PCM.DEL ---
L & D Note - General Info Date of Service: 08/28/20 Mother's Due Date: 09/10/20 - Delivery Note Labor: Spontaneous Delivery Outcome: Livebirth Infant Delivery Method: Spontaneous Vaginal Delivery-Single Infant Delivery Mode: Spontaneous Presentation: Vertex Nuchal Cord: None Anesthesia Type: Local Anesthetic: Lidocaine (Xylocaine) 1% Plain Local Anesthetic Volume: 3cc Amniotic Fluid Description: Clear Episiotomy Type: None Laceration: 1st Degree, Perineal Suture type: Vicryl Suture size: 3-0 Placenta: Intact, Spontaneous Cord: 3 Vessels Estimated Blood Loss: 100 Resuscitation Needed: No : Bulb Syringe, Stimulated, Warmed, [place] Used Provider: Nohemy Nunez Score 1 min: 8 Score 5 min: 9 Second Stage Interventions: Reports: Second Nurse Reviewed Heart Tones, Pushing Effectively Delivery Comments (Free Text/Narrative):: Makenna awoke at 2330 in active labor. After a few contractions and family came to be with children she drove herself to the hospital. upon admission at 0115 she was dilated to 6-7 cm per RN. I arrived at 0130. She wanted to push at 0136 and was complete. A viable female infant was delivered via at 0138 in ANNA position. She was placed on her mother's chest and was pink and screaming. Apgars of 8-9. She is a G3 now P3 and 38 weeks gestation. Three vessel cord. Active management of the third stage and delayed cord clamping were done. The placenta was expressed spontaneously intact. A first degree perineal tear was found and repaired with 3-0. 1% lidocaine was used as a local agent. No lacerations to the cervix, vagina or rectum were found. EBL 100cc Mother and baby to post in stable condition. weight 8-2 First stage 3056-1839 Second stage 7611-2345 Third stage 8585-7706 Beautiful delivery with no medication or complications - General Info Date of Service: 08/28/20 (delivery) Admission Dx/Problem (Free Text): Patient Status Order with Admit Dx/Problem 08/28/20 02:20 Patient Status [ADT] Routine Admission Diagnosis/Problem Admission Diagnosis/Problem Labor established Functional Status: Reports: Pain Controlled - Review of Systems General: Reports: No Symptoms HEENT: Reports: No Symptoms Pulmonary: Reports: No Symptoms Cardiovascular: Reports: No Symptoms Gastrointestinal: Reports: No Symptoms Genitourinary: Reports: No Symptoms Musculoskeletal: Reports: No Symptoms Skin: Reports: No Symptoms Neurological: Reports: No Symptoms Psychiatric: Reports: No Symptoms - Patient Data Vitals - Most Recent: Last Vital Signs Temp 98.9 F 08/28/20 01:03 Pulse 138 H 08/28/20 01:03 Resp 16 08/28/20 01:03 BP 135/82 08/28/20 01:03 Pulse Ox 99 08/28/20 01:03 Weight - Most Recent: 266 lb I&O - Last 24 Hours: Intake & Output 08/27/20 08/27/20 08/28/20 14:59 22:59 06:59 Intake Total 1000 Balance 1000 Lab Results Last 24 Hours: Laboratory Results - last 24 hr 08/28/20 08/28/20 08/28/20 Range/Units 01:13 01:13 01:42 WBC 28.4 H (4.5-11.0) K/uL RBC 2.33 L (3.30-5.50) M/uL Hgb 8.8 L D (12.0-15.0) g/dL Hct 26.2 L (36.0-48.0) % MCV 112 H (80-98) fL MCH 38 H (27-31) pg MCHC 34 (32-36) % Plt Count 199 (150-400) K/uL Urine Color (YELLOW) Urine Appearance (CLEAR) Urine pH (5.0-8.0) Ur Specific [place] (1.008-1.030) Urine Protein (NEGATIVE) mg/dL Urine Glucose (UA) (NEGATIVE) mg/dL Urine Ketones (NEGATIVE) mg/dL Urine Occult Blood (NEGATIVE) Urine Nitrite (NEGATIVE) Urine Bilirubin (NEGATIVE) Urine Urobilinogen (0.2-1.0) EU/dL Ur Leukocyte Esterase (NEGATIVE) Urine Opiates Screen Negative (NEGATIVE) Ur Oxycodone Screen Negative (NEGATIVE) Urine Methadone Screen Negative (NEGATIVE) Ur Propoxyphene Screen Negative (NEGATIVE) Ur Barbiturates Screen Negative (NEGATIVE) Ur Tricyclics Screen Negative (NEGATIVE) Ur Phencyclidine Scrn Negative (NEGATIVE) Ur Amphetamine Screen Negative (NEGATIVE) U Methamphetamines Scrn Negative (NEGATIVE) Urine MDMA Screen Negative (NEGATIVE) U Benzodiazepines Scrn Negative (NEGATIVE) U Cocaine Metab Screen Negative (NEGATIVE) U Marijuana (THC) Screen Negative (NEGATIVE) SARS CoV-2 RNA Rapid JENNIFER Negative 08/28/20 Range/Units 01:42 WBC (4.5-11.0) K/uL RBC (3.30-5.50) M/uL Hgb (12.0-15.0) g/dL Hct (36.0-48.0) % MCV (80-98) fL MCH (27-31) pg MCHC (32-36) % Plt Count (150-400) K/uL Urine Color Yellow (YELLOW) Urine Appearance Slightly cloudy A (CLEAR) Urine pH 6.5 (5.0-8.0) Ur Specific [place] 1.015 (1.008-1.030) Urine Protein 30 H (NEGATIVE) mg/dL Urine Glucose (UA) Normal (NEGATIVE) mg/dL Urine Ketones Negative (NEGATIVE) mg/dL Urine Occult Blood Small (NEGATIVE) Urine Nitrite Negative (NEGATIVE) Urine Bilirubin Negative (NEGATIVE) Urine Urobilinogen 0.2 (0.2-1.0) EU/dL Ur Leukocyte Esterase Trace H (NEGATIVE) Urine Opiates Screen (NEGATIVE) Ur Oxycodone Screen (NEGATIVE) Urine Methadone Screen (NEGATIVE) Ur Propoxyphene Screen (NEGATIVE) Ur Barbiturates Screen (NEGATIVE) Ur Tricyclics Screen (NEGATIVE) Ur Phencyclidine Scrn (NEGATIVE) Ur Amphetamine Screen (NEGATIVE) U Methamphetamines Scrn (NEGATIVE) Urine MDMA Screen (NEGATIVE) U Benzodiazepines Scrn (NEGATIVE) U Cocaine Metab Screen (NEGATIVE) U Marijuana (THC) Screen (NEGATIVE) SARS CoV-2 RNA Rapid JENNIFER Med Orders - Current: Current Medications Acetaminophen (Tylenol Bulk Bottle) 0 mg PO Q4H PRN PRN Reason: Pain Lactated Ringer's (Ringers, Lactated) 1,000 mls @ 100 mls/hr IV ASDIRECTED ALCIRA Oxytocin/Sodium Chloride (Pitocin In Ns 20 Units/1,000 Ml) 20 unit in 1,000 mls @ 500 mls/hr IV ASDIRECTED ALCIRA; Protocol Ibuprofen (Motrin Bulk Bottle) 600 mg PO Q6H PRN PRN Reason: Pain Discontinued Medications Benzocaine (Ktup-O-Awbmlpy 20% [place]) 0 gm TOP Q4H ONE Stop: 08/28/20 02:20 Oxytocin/Sodium Chloride (Pitocin In Ns 20 Units/1,000 Ml) Confirm Administered Dose 20 unit in 1,000 mls @ as directed .ROUTE .STK-MED ONE Stop: 08/28/20 01:34 Lidocaine HCl (Xylocaine 1%) Confirm Administered Dose 50 ml .ROUTE .STK-MED ONE Stop: 08/28/20 01:52 Adilia Rviera ([place]) 1 pad TOP ASDIRECTED ONE Stop: 08/28/20 02:20 - Exam General: Alert, Oriented HEENT: Pupils Equal, Mucous Membr. Moist/[place] Neck: Supple Lungs: Clear to Auscultation, Normal Respiratory Effort Cardiovascular: Regular Rate, Regular Rhythm GI/Abdominal Exam: Soft, Pelvis Stable (Female) Exam: Normal External Exam, Enlarged Uterus, Vaginal Bleeding Back Exam: Normal Inspection, Full Range of Motion Extremities: Normal Range of Motion, No Pedal Edema, Normal Capillary Refill Skin: Warm, Dry Neurological: No New Focal Deficit Psy/Mental Status: Alert, Normal Affect, Normal Mood - Problem List & Annotations (1) Vaginal delivery SNOMED Code(s): 250184366 Code(s): O80 - ENCOUNTER FOR FULL-TERM UNCOMPLICATED DELIVERY Status: Acute Current Visit: Yes (2) Active labor at term SNOMED Code(s): 09763779 Code(s): OKM9183 - Status: Acute Current Visit: Yes - Problem List Review Problem List Initiated/Reviewed/Updated: Yes - My Orders Last 24 Hours: My Active Orders 08/28/20 01:08 OB Check [OM.PC] Click to Edit 08/28/20 01:30 Lactated Ringers [Ringers, Lactated] 1,000 ml IV ASDIRECTED Oxytocin/Normal Saline [Pitocin in NS 20 Units/1,000 ML] 20 unit in 1,000 ml IV ASDIRECTED 08/28/20 02:19 Acetaminophen [Tylenol Bulk Bottle] See Dose Instructions PO Q4H PRN Ibuprofen [Motrin Bulk Bottle] 600 mg PO Q6H PRN Assess Lochia [WOMSER] Per Unit Routine Assess Uterine Involution [WOMSER] Per Unit Routine DVT/VTE Prophylaxis Reflex [OM.PC] Routine Resuscitation Status Routine 08/28/20 02:20 Patient Status [ADT] Routine Vital Signs [RC] PFP 08/28/20 02:21 Antiembolic Devices [RC] .Routine VTE/DVT Education [RC] Click to Edit Perineal Care [OM.PC] Per Unit Routine Peripheral IV Discontinue [OM.PC] Routine Sitz Bath [OM.PC] Per Unit Routine 08/28/20 05:11 CBC WITH AUTO DIFF [HEME] AM 08/28/20 Breakfast Regular Diet [DIET] - Assessment Assessment:: 08/28/20 29 year old without complications small first degree perineal tear repaired female infant HGB 8.8 elevated white count, unknown rupture of membranes - Plan Plan:: 29 year old who is 38 weeks admit and delivery 08/28/20 vitamins and iron supplement Rocephin for elevated white count routine cares bottle baby 24-48 hour stay.
[2020-08-28] MEDS ORDERED: cefTRIAXone 2 GM in Sodium Chloride 0.9% 50 ML IV ONE (02:43)
[2020-08-28] MEDS ORDERED: Benzocaine 20% Top Spray 56 GM Bottle TOP PRN (07:04)
[2020-08-28] MEDS ORDERED: Witch Hazel Medicated Pads 100/Jar TOP PRN (07:05)
[2020-08-28] MEDS ORDERED: Gentamicin 40 MG/ML 2 ML Vial IV SCH (08:00)
--- NOTE | 2020-08-28 08:14 | PCM.PNPP ---
- General Info Date of Service: 08/28/20 Admission Dx/Problem (Free Text): Patient Status Order with Admit Dx/Problem 08/28/20 02:20 Patient Status [ADT] Routine Admission Diagnosis/Problem Admission Diagnosis/Problem Labor established Functional Status: Reports: Pain Controlled - Review of Systems General: Reports: No Symptoms HEENT: Reports: No Symptoms Pulmonary: Reports: No Symptoms Cardiovascular: Reports: No Symptoms Gastrointestinal: Reports: No Symptoms Genitourinary: Reports: No Symptoms Musculoskeletal: Reports: No Symptoms Skin: Reports: No Symptoms Neurological: Reports: No Symptoms Psychiatric: Reports: No Symptoms - General Info Date of Service: 08/28/20 - Patient Data Vital Signs - Most Recent: Last Vital Signs Temp 98.0 F 08/28/20 05:47 Pulse 111 H 08/28/20 05:47 Resp 14 08/28/20 05:47 BP 137/75 08/28/20 05:47 Pulse Ox 97 08/28/20 05:47 Weight - Most Recent: 266 lb I&O - Last 24 Hours: Intake & Output 08/27/20 08/28/20 08/28/20 22:59 06:59 14:59 Intake Total 1400 Balance 1400 Lab Results - Last 24 Hours: Laboratory Results - last 24 hr 08/28/20 08/28/20 08/28/20 Range/Units 01:13 01:13 01:42 WBC 28.4 H (4.5-11.0) K/uL RBC 2.33 L (3.30-5.50) M/uL Hgb 8.8 L D (12.0-15.0) g/dL Hct 26.2 L (36.0-48.0) % MCV 112 H (80-98) fL MCH 38 H (27-31) pg MCHC 34 (32-36) % Plt Count 199 (150-400) K/uL Add Manual Diff Neutrophils % (Manual) (36-66) % Band Neutrophils % (5-11) % Lymphocytes % (Manual) (24-44) % Monocytes % (Manual) (2-6) % Macrocytosis Target Cells Tear Drop Cells Urine Color (YELLOW) Urine Appearance (CLEAR) Urine pH (5.0-8.0) Ur Specific Martin (1.008-1.030) Urine Protein (NEGATIVE) mg/dL Urine Glucose (UA) (NEGATIVE) mg/dL Urine Ketones (NEGATIVE) mg/dL Urine Occult Blood (NEGATIVE) Urine Nitrite (NEGATIVE) Urine Bilirubin (NEGATIVE) Urine Urobilinogen (0.2-1.0) EU/dL Ur Leukocyte Esterase (NEGATIVE) Urine Opiates Screen Negative (NEGATIVE) Ur Oxycodone Screen Negative (NEGATIVE) Urine Methadone Screen Negative (NEGATIVE) Ur Propoxyphene Screen Negative (NEGATIVE) Ur Barbiturates Screen Negative (NEGATIVE) Ur Tricyclics Screen Negative (NEGATIVE) Ur Phencyclidine Scrn Negative (NEGATIVE) Ur Amphetamine Screen Negative (NEGATIVE) U Methamphetamines Scrn Negative (NEGATIVE) Urine MDMA Screen Negative (NEGATIVE) U Benzodiazepines Scrn Negative (NEGATIVE) U Cocaine Metab Screen Negative (NEGATIVE) U Marijuana (THC) Screen Negative (NEGATIVE) SARS CoV-2 RNA Rapid JENNIFER Negative 08/28/20 08/28/20 Range/Units 01:42 04:00 WBC 30.6 H* (4.5-11.0) K/uL RBC 2.35 L (3.30-5.50) M/uL Hgb 8.5 L (12.0-15.0) g/dL Hct 27.1 L (36.0-48.0) % MCV 115 H (80-98) fL MCH 36 H (27-31) pg MCHC 31 L (32-36) % Plt Count 178 (150-400) K/uL Add Manual Diff Yes Neutrophils % (Manual) 40 (36-66) % Band Neutrophils % 2 L (5-11) % Lymphocytes % (Manual) 18 L (24-44) % Monocytes % (Manual) 40 H (2-6) % Macrocytosis Moderate H Target Cells Few Tear Drop Cells Few Urine Color Yellow (YELLOW) Urine Appearance Slightly cloudy A (CLEAR) Urine pH 6.5 (5.0-8.0) Ur Specific Martin 1.015 (1.008-1.030) Urine Protein 30 H (NEGATIVE) mg/dL Urine Glucose (UA) Normal (NEGATIVE) mg/dL Urine Ketones Negative (NEGATIVE) mg/dL Urine Occult Blood Small (NEGATIVE) Urine Nitrite Negative (NEGATIVE) Urine Bilirubin Negative (NEGATIVE) Urine Urobilinogen 0.2 (0.2-1.0) EU/dL Ur Leukocyte Esterase Trace H (NEGATIVE) Urine Opiates Screen (NEGATIVE) Ur Oxycodone Screen (NEGATIVE) Urine Methadone Screen (NEGATIVE) Ur Propoxyphene Screen (NEGATIVE) Ur Barbiturates Screen (NEGATIVE) Ur Tricyclics Screen (NEGATIVE) Ur Phencyclidine Scrn (NEGATIVE) Ur Amphetamine Screen (NEGATIVE) U Methamphetamines Scrn (NEGATIVE) Urine MDMA Screen (NEGATIVE) U Benzodiazepines Scrn (NEGATIVE) U Cocaine Metab Screen (NEGATIVE) U Marijuana (THC) Screen (NEGATIVE) SARS CoV-2 RNA Rapid JENNIFER Med Orders - Current: Current Medications Acetaminophen (Tylenol Bulk Bottle) 0 mg PO Q4H PRN PRN Reason: Pain Last Admin: 08/28/20 02:45 Dose: 650 mg Documented by: Benzocaine (Sezl-B-Wvjugdu 20% May) 0 gm TOP Q4H PRN PRN Reason: perineal pain Ferrous Sulfate (Ferrous Sulfate) 325 mg PO BIDMEALS [facility] Gentamicin Sulfate (Gentamicin) 0 mg IV .Pharmacy to Dose [facility] Oxytocin/Sodium Chloride (Pitocin In Ns 20 Units/1,000 Ml) 20 unit in 1,000 mls @ 500 mls/hr IV ASDIRECTED [facility]; Protocol Last Admin: 08/28/20 01:39 Dose: 500 mls/hr Documented by: Ceftriaxone Sodium 2 gm/ (Sodium Chloride) 50 mls @ 100 mls/hr IV Q24H [facility] Stop: 08/31/20 08:16 Ibuprofen (Motrin Bulk Bottle) 600 mg PO Q6H PRN PRN Reason: Pain Last Admin: 08/28/20 02:44 Dose: 600 mg Documented by: [facility]) 1 pad TOP ASDIRECTED PRN PRN Reason: to perineum Discontinued Medications Benzocaine (Tufo-J-Fayeysu 20% May) 0 gm TOP Q4H ONE Stop: 08/28/20 02:20 Last Admin: 08/28/20 02:45 Dose: 1 applic Documented by: Lactated Ringer's (Ringers, Lactated) 1,000 mls @ 100 mls/hr IV ASDIRECTED [facility] Last Admin: 08/28/20 02:41 Dose: 100 mls/hr Documented by: Oxytocin/Sodium Chloride (Pitocin In Ns 20 Units/1,000 Ml) Confirm Administered Dose 20 unit in 1,000 mls @ as directed .ROUTE .STK-MED ONE Stop: 08/28/20 01:34 Last Admin: 08/28/20 02:42 Dose: Not Given Documented by: Ceftriaxone Sodium 2 gm/ (Sodium Chloride) 50 mls @ 100 mls/hr IV ONETIME ONE Stop: 08/28/20 03:12 Last Admin: 08/28/20 02:59 Dose: 100 mls/hr Documented by: Lidocaine HCl (Xylocaine 1%) Confirm Administered Dose 50 ml .ROUTE .STK-MED ONE Stop: 08/28/20 01:52 Last Admin: 08/28/20 02:41 Dose: 50 ml Documented by: Lidocaine HCl (Xylocaine 1%) 20 ml INJECT ONETIME ONE Stop: 08/28/20 02:41 Last Admin: 08/28/20 03:04 Dose: Not Given Documented by: Adilia Li) 1 pad TOP ASDIRECTED ONE Stop: 08/28/20 02:20 Last Admin: 08/28/20 02:44 Dose: 1 pad Documented by: - Interaction Disposition, : [place] in Room with Family Infant Interaction: Holding Infant Feeding: Bottle Fed Support Person: - Recovery Exam Fundal Tone: Firm Fundal Level: At Umbilicus Fundal Placement: Midline Lochia Amount: Small Lochia Color: Rubra/Red Perineum Description: Intact, Minimal Bruising/Swelling Other Perinuem Description: sutures completed Episiotomy/Laceration: Approximated Urinary Elimination: Voided - Exam General: Alert, Oriented HEENT: Pupils Equal Neck: Supple Lungs: Clear to Auscultation, Normal Respiratory Effort Cardiovascular: Tachycardia GI/Abdominal Exam: Non-Tender Extremities: No Pedal Edema Skin: Warm Neurological: No New Focal Deficit Psy/Mental Status: Alert, Normal Affect, Normal Mood - Problem List & Annotations (1) Vaginal delivery SNOMED Code(s): 574827647 Code(s): O80 - ENCOUNTER FOR FULL-TERM UNCOMPLICATED DELIVERY Status: Acute Current Visit: Yes (2) Active labor at term SNOMED Code(s): 20236445 Code(s): PMF5608 - Status: Acute Current Visit: Yes (3) Chorioamnionitis, delivered, current hospitalization SNOMED Code(s): 47045925, 332217507 Code(s): O41.1290 - CHORIOAMNIONITIS, UNSP TRIMESTER, NOT APPLICABLE OR UNSP Status: Acute Current Visit: Yes - Problem List Review Problem List Initiated/Reviewed/Updated: Yes - My Orders Last 24 Hours: My Active Orders 08/28/20 01:08 OB Check [OM.PC] Click to Edit 08/28/20 01:30 Oxytocin/Normal Saline [Pitocin in NS 20 Units/1,000 ML] 20 unit in 1,000 ml IV ASDIRECTED 08/28/20 02:19 Acetaminophen [Tylenol Bulk Bottle] See Dose Instructions PO Q4H PRN Ibuprofen [Motrin Bulk Bottle] 600 mg PO Q6H PRN Assess Lochia [WOMSER] Per Unit Routine Assess Uterine Involution [WOMSER] Per Unit Routine DVT/VTE Prophylaxis Reflex [OM.PC] Routine Resuscitation Status Routine 08/28/20 02:20 Patient Status [ADT] Routine Vital Signs [RC] PFP 08/28/20 02:21 Antiembolic Devices [RC] .Routine Perineal Care [OM.PC] Per Unit Routine Peripheral IV Discontinue [OM.PC] Routine Sitz Bath [OM.PC] Per Unit Routine 08/28/20 07:04 Benzocaine [Hfgz-J-Xuuhqjl 20% May] 0 gm TOP Q4H PRN 08/28/20 07:05 witch [place] [Tucks] 1 pad TOP ASDIRECTED PRN 08/28/20 Breakfast Regular Diet [DIET] Ferrous Sulfate 325 mg PO BIDMEALS Gentamicin See Dose Instructions IV .Pharmacy to Dose 08/29/20 03:00 CBC W/O DIFF,HEMOGRAM [HEME] DAILY 08/29/20 08:15 cefTRIAXone [Rocephin] 2 gm Sodium Chloride 0.9% [Normal Saline] 50 ml IV Q24H - Assessment Assessment:: 08/28/20 29 year old without complications small first degree perineal tear repaired female infant HGB 8.8 elevated white count, unknown rupture of membranes white count 30,000 Mother tachy no belly pain presumed chorioamnionitis - Plan Plan:: 29 year old who is 38 weeks admit and delivery 08/28/20 vitamins and iron supplement Rocephin for elevated white count routine cares bottle baby 24-48 hour stay. Start Gentamicin and continue Rocephin Check CBC in am
[2020-08-28] MEDS: Ferrous Sulfate 325 MG Tab PO SCH ×2 (09:26→16:54)
[2020-08-28] MEDS: Gentamicin 420 MG in Sodium Chloride 0.9% 100 ML IV SCH (10:23)
[2020-08-29 07:12] VITALS: BP 168/67; PULSE 105
[2020-08-29] MEDS ORDERED: cefTRIAXone 2 GM in Sodium Chloride 0.9% 50 ML IV SCH (08:00)
--- NOTE | 2020-08-29 08:20 | PCM.PNPP ---
- General Info Date of Service: 08/29/20 Functional Status: Reports: Pain Controlled - Review of Systems General: Reports: No Symptoms HEENT: Reports: No Symptoms Pulmonary: Reports: No Symptoms Cardiovascular: Reports: No Symptoms Gastrointestinal: Reports: No Symptoms Genitourinary: Reports: No Symptoms Musculoskeletal: Reports: No Symptoms Skin: Reports: No Symptoms Neurological: Reports: No Symptoms Psychiatric: Reports: No Symptoms - General Info Date of Service: 08/29/20 - Patient Data Vital Signs - Most Recent: Last Vital Signs Temp 36.7 C 08/29/20 07:10 Pulse 105 H 08/29/20 07:10 Resp 18 08/29/20 07:10 BP 168/67 H 08/29/20 07:10 Pulse Ox 97 08/29/20 07:10 Weight - Most Recent: 114.305 kg I&O - Last 24 Hours: Intake & Output 08/28/20 08/29/20 08/29/20 22:59 06:59 14:59 Intake Total 900 Output Total 600 Balance -600 900 Lab Results - Last 24 Hours: Laboratory Results - last 24 hr 08/29/20 Range/Units 04:20 WBC 24.3 H (4.5-11.0) K/uL RBC 2.08 L (3.30-5.50) M/uL Hgb 7.7 L (12.0-15.0) g/dL Hct 24.5 L (36.0-48.0) % MCV 118 H (80-98) fL MCH 37 H (27-31) pg MCHC 31 L (32-36) % Plt Count 168 (150-400) K/uL Med Orders - Current: Current Medications Acetaminophen (Tylenol Bulk Bottle) 0 mg PO Q4H PRN PRN Reason: Pain Last Admin: 08/28/20 02:45 Dose: 650 mg Documented by: Benzocaine (Vlwz-S-Tweofdn 20% Agency) 0 gm TOP Q4H PRN PRN Reason: perineal pain Ferrous Sulfate (Ferrous Sulfate) 325 mg PO BIDMEALS [facility] Last Admin: 08/28/20 16:54 Dose: 325 mg Documented by: Oxytocin/Sodium Chloride (Pitocin In Ns 20 Units/1,000 Ml) 20 unit in 1,000 mls @ 500 mls/hr IV ASDIRECTED [facility]; Protocol Last Admin: 08/28/20 01:39 Dose: 500 mls/hr Documented by: Ceftriaxone Sodium 2 gm/ (Sodium Chloride) 50 mls @ 100 mls/hr IV Q24H [facility] Stop: 08/31/20 08:01 Gentamicin Sulfate 420 mg/ (Sodium Chloride) 110.5 mls @ 110.5 mls/hr IV Q24H [facility] Last Admin: 08/28/20 10:23 Dose: 110.5 mls/hr Documented by: Ibuprofen (Motrin Bulk Bottle) 600 mg PO Q6H PRN PRN Reason: Pain Last Admin: 08/28/20 02:44 Dose: 600 mg Documented by: Adilia Li) 1 pad TOP ASDIRECTED PRN PRN Reason: to perineum Discontinued Medications Benzocaine (Vcei-B-Uigqdco 20% [facility]) 0 gm TOP Q4H ONE Stop: 08/28/20 02:20 Last Admin: 08/28/20 02:45 Dose: 1 applic Documented by: Lactated Ringer's (Ringers, Lactated) 1,000 mls @ 100 mls/hr IV ASDIRECTED [facility] Last Admin: 08/28/20 02:41 Dose: 100 mls/hr Documented by: Oxytocin/Sodium Chloride (Pitocin In Ns 20 Units/1,000 Ml) Confirm Administered Dose 20 unit in 1,000 mls @ as directed .ROUTE .STK-MED ONE Stop: 08/28/20 01:34 Last Admin: 08/28/20 02:42 Dose: Not Given Documented by: Ceftriaxone Sodium 2 gm/ (Sodium Chloride) 50 mls @ 100 mls/hr IV ONETIME ONE Stop: 08/28/20 03:12 Last Admin: 08/28/20 02:59 Dose: 100 mls/hr Documented by: Lidocaine HCl (Xylocaine 1%) Confirm Administered Dose 50 ml .ROUTE .STK-MED ONE Stop: 08/28/20 01:52 Last Admin: 08/28/20 02:41 Dose: 50 ml Documented by: Lidocaine HCl (Xylocaine 1%) 20 ml INJECT ONETIME ONE Stop: 08/28/20 02:41 Last Admin: 08/28/20 03:04 Dose: Not Given Documented by: Adilia Li) 1 pad TOP ASDIRECTED ONE Stop: 08/28/20 02:20 Last Admin: 08/28/20 02:44 Dose: 1 pad Documented by: - Infant Interaction Disposition, : [place] in Room with Family Interaction: Holding Infant Feeding: Bottle Fed Infant Support Person: - Recovery Exam Fundal Tone: Firm Fundal Level: 2 Fingerbreadths Below Umbilicus Fundal Placement: Midline Lochia Amount: Small Lochia Color: Rubra/Red Perineum Description: Intact, Minimal Bruising/Swelling Other Perinuem Description: sutures completed Episiotomy/Laceration: Approximated Bladder Status: Voiding Urinary Elimination: Voided - Exam General: Alert, Oriented HEENT: Pupils Equal, Pupils Reactive, EOMI, Mucous Membr. Moist/[place] Neck: Supple Lungs: Clear to Auscultation, Normal Respiratory Effort Cardiovascular: Regular Rate, Regular Rhythm GI/Abdominal Exam: Normal Bowel Sounds, Soft, Non-Tender, No Organomegaly, No Distention, Pelvis Stable Extremities: Normal Inspection, Normal Range of Motion, Non-Tender, No Pedal Edema, Normal Capillary Refill Skin: Warm, Dry, Intact Neurological: No New Focal Deficit Psy/Mental Status: Alert, Normal Affect, Normal Mood - Problem List & Annotations (1) Active labor at term SNOMED Code(s): 13763678 Code(s): NDD2345 - Status: Acute Current Visit: Yes (2) Chorioamnionitis, delivered, current hospitalization SNOMED Code(s): 39539532, 316787966 Code(s): O41.1290 - CHORIOAMNIONITIS, UNSP TRIMESTER, NOT APPLICABLE OR UNSP Status: Acute Current Visit: Yes (3) Vaginal delivery SNOMED Code(s): 572633253 Code(s): O80 - ENCOUNTER FOR FULL-TERM UNCOMPLICATED DELIVERY Status: Acute Current Visit: Yes - Problem List Review Problem List Initiated/Reviewed/Updated: Yes - Assessment Assessment:: 08/28/20 29 year old without complications small first degree perineal tear repaired female HGB 8.8 elevated white count, unknown rupture of membranes white count 30,000 Mother tachy no belly pain presumed chorioamnionitis 08/29/20 WBC down to 24.3, she is asymptomatic, no fevers Hgb 7.7, asymptomatic FF and bleeding light Bottle feeding baby Feeling very well and wants to go home - Plan Plan:: 29 year old who is 38 weeks admit and delivery 08/28/20 vitamins and iron supplement Rocephin for elevated white count routine cares bottle baby 24-48 hour stay. Start Gentamicin and continue Rocephin Check CBC in am 08/29/20 Discharge home today Home on no antibiotics 6 week pp check with Nohemy
[2020-08-29] MEDS: Ferrous Sulfate 325 MG Tab PO SCH (08:59)
[2020-08-29] MEDS: Gentamicin 420 MG in Sodium Chloride 0.9% 100 ML IV SCH (09:00)
== END 2020-08-29 12:09 | disposition home or self-care (01) | DRG 807 ==
LOC: JP.OBCHECK 00:55 → UNDOADMOB 01:35 → JP.OB 01:35 → INTOOBSV 01:35 → OBSVTOIN 01:35 → JP.OB 01:38 → JP.MS 02:54
PROVIDERS: ADMIT Nurse Practitioner Family; ATTEND Nurse Practitioner Family
PROC: 10E0XZZ Delivery of Products of Conception, External Approach (ICD-10-PCS; principal; 2020-08-28)
PROC: 0HQ9XZZ Repair Perineum Skin, External Approach (ICD-10-PCS; 2020-08-28)
DX: O41.1230 Chorioamnionitis, third trimester, not applicable or unspecified (principal); Z37.0 Single live birth; O70.0 First degree perineal laceration during delivery; Z3A.38 38 weeks gestation of pregnancy; Z20.828 Contact with and (suspected) exposure to other viral communicable diseases
CPT/HCPCS: 36415; 59409; 80305-QW; 81003; 85025; 85027; 99211; A9270-GY; J0696; J1580; J2001; J2590; J7050; J7120; U0002